=== PATIENT | female | born 1975 | race Caucasian/White ===

== ENCOUNTER 2016-12-31 17:13 | Emergency (ER) | payer MEDICAID ==
[2016-12-31 17:36] VITALS: BP 103/69
[2016-12-31] MEDS ORDERED: Sodium Chloride 0.9% 10 ML Syringe FLUSH PRN ×2 (18:27→20:36)
[2016-12-31] MEDS ORDERED: HYDROmorphone 1 MG/ML Syringe IVPUSH ONE (18:27)
[2016-12-31] MEDS ORDERED: Ondansetron 4 MG/2 ML SDV IVPUSH ONE (18:27)
[2016-12-31] MEDS ORDERED: Sodium Chloride 0.9% 1,000 ML IV ONE (18:27)
--- NOTE | 2016-12-31 18:37 | EDM.PDOC ---
ED HISTORY OF PRESENT ILLNESS - General Chief Complaint: Respiratory Problem Stated Complaint: CONGESTION Time Seen by Provider: 12/31/16 17:57 Source of Information: Reports: Patient History Limitations: Reports: No limitations - History of Present Illness INITIAL COMMENTS - FREE TEXT/NARRATIVE: Patient is a 41-year-old female who presents to the ED complaining of generalized body aches, fever/chills, nausea/vomiting, shortness of breath, cough, dizziness, headache, and right adnexal discomfort. Patient states she was initially evaluated at the walk-in clinic here at [facility] on December 27 with a diagnosis of pneumonia and placed on augmentin 875 mg twice a day. There was no chest x-ray obtained at that time. Since then the patient has noticed little improvement to her condition. States she was not tested at that point for influenza. She states she had similar symptoms approximately 2 weeks ago and was tested for influenza with negative results. States she has not improved with the above therapy and has had little intake of fluids or food. States she's been sleeping quite a bit with recent illness. In addition she has chronic right adnexal tenderness related to cyst to her right ovary. States she recently had an ultrasound obtained this past week with cyst noted to be half-dollar in size. States the discomfort to the right adnexa is unchanged with recent illness. States there is no chance of being with history of hysterectomy. Denies any pain with urination, diarrhea, constipation, abnormal vaginal discharge, or any additional complaints. Timing/Duration: Reports: Constant, Waxing/waning Severity: moderate Location, General: Reports: generalized Quality: Reports: Ache Improves with: Reports: None Worsens with: Reports: None Context, General: Reports: Sick contact Associated Symptoms (General): Reports: cough, cough w sputum, fever/chills, loss of appetite, malaise, nausea/vomiting, shortness of breath, weakness. Denies: diaphoresis, syncope Treatments BUTTON SEWER HAND: Reports: Other (see below) (augmentin) - Related Data Allergies/ADRs: Allergies Allergy/AdvReac Type Severity Reaction Status Date / Time adhesive tape Allergy Rash Verified 12/31/16 17:27 Home Meds: Home Meds Benzonatate [IJD: Benzonatate] 100 mg PO BID PRN #15 cap 12/31/16 [Rx] Ondansetron [IJD: Ondansetron ODT] 4 mg PO .EVERY 6 HOURS PRN #10 tab 12/31/16 [ Rx] Past Medical History HEENT History: Reports: Impaired vision Other HEENT History: wears glasses, dentures Other Respiratory History: SEVERE Snoring with possible Apnea Gastrointestinal History: Reports: PUD Other Gastrointestinal History: abdominal discomfort, LLQ pain, delayed gastric emptying, ulcer CARDIOVASCULAR TECH History: Reports: Other (see below) Other OB/BYN History: breast Lump and breast pain/swelling, pelvic pain Neurological History: Reports: Other (see below) Other Neuro History: neuropathy, Chronic Pain Syndrome - Past Surgical History GI Surgical History: Reports: Appendectomy, Cholecystectomy, Colonoscopy, EGD Female Surgical History: Reports: section, Hysterectomy Social & Family History - Tobacco Use Smoking Status *Q: Former Smoker Years of Tobacco use: 20 Packs/Tins Daily: 0.5 Second Hand Smoke Exposure: Yes - Caffeine Use Caffeine Use: Reports: Coffee - Alcohol Use Days Per Week of Alcohol Use: 0 - Recreational Drug Use Recreational Drug Use: No Drug Use in Last 12 Months: No - Living Situation & Occupation Living situation: Reports: , with family ED ROS GENERAL - Review of Systems Review Of Systems: See Below Constitutional: Reports: fever, chills, malaise, weakness, decreased appetite HEENT: Reports: Ear pain, Rhinitis, Other (sinus congestion). Denies: Throat pain, Throat swelling Respiratory: Reports: shortness of breath, cough, sputum (intermittent). Denies : wheezing, pleuritic chest pain GI/Abdominal: Reports: Abdominal pain (right adnexa 2nd to ovarian cysts. States this is chronic unchanged with recent illness. ), Nausea, Vomiting. Denies: Bloody stool, Constipation, Diarrhea, Distension, Flatus, Hematemesis, Melena : Denies: dysuria, flank pain, frequency, hematuria, pain, urgency, urinary retention Musculoskeletal: Reports: muscle pain (generalized) Neurological: Reports: dizziness, headache. Denies: numbness, syncope, tingling ED EXAM, GENERAL - Physical Exam Exam: See Below Exam Limited By: No limitations General Appearance: alert, WD/WN, mild distress Eye Exam: bilateral eye: EOMI, PERRL Ears: normal external exam, normal canal, hearing grossly normal, normal TMs Nose: normal inspection Throat/Mouth: Normal inspection, Normal oropharynx, Normal voice, No airway compromise Head: atraumatic, normocephalic Neck: normal inspection, supple, non-tender, full range of motion. No: lymphadenopathy (L), lymphadenopathy (R) Respiratory/Chest: no respiratory distress, lungs clear, normal breath sounds, no accessory muscle use, chest non-tender Cardiovascular: normal peripheral pulses, regular rate, rhythm, no murmur Peripheral Pulses: 2+: radial (R) GI/Abdominal: normal bowel sounds, soft, no organomegaly, no distention, tender (right adnexa) (Female) Exam: Deferred Rectal (Female) Exam: Deferred Back Exam: normal inspection, full range of motion, CVA tenderness (L) (mild). No: CVA tenderness (R) Extremities: normal inspection, normal range of motion, non-tender, no pedal edema Neurological: alert, oriented, CN II-XII intact, normal cognition, normal gait Psychiatric: normal affect, normal mood Skin Exam: Warm, Dry, Intact, Normal color, No rash Course - Vital Signs Last Recorded V/S: Last Vital Signs Temp 98.6 F 12/31/16 22:21 Pulse 78 12/31/16 22:21 Resp 16 12/31/16 22:21 BP 103/69 12/31/16 17:28 Pulse Ox 99 12/31/16 22:21 - Orders/Labs/Meds Orders: Active Orders 24 hr Category Date Time Status Peripheral IV Care [RC] . DIRECTED Care 12/31/16 18:27 Active CXR [Chest 2V] [CR] Stat Exams 12/31/16 18:28 Taken Sodium Chloride 0.9% [Saline Flush] Med 12/31/16 18:27 Active 10 ml FLUSH ASDIRECTED PRN Sodium Chloride 0.9% [Saline Flush] Med 12/31/16 20:36 Active 10 ml FLUSH ONETIME PRN Peripheral IV Insertion Adult [OM.PC] Stat Oth 12/31/16 18:27 Ordered Medication Orders Sodium Chloride (Saline Flush) 10 ml FLUSH ASDIRECTED PRN PRN Reason: Keep Vein Open Last Admin: 12/31/16 19:02 Dose: 10 ml Sodium Chloride (Saline Flush) 10 ml FLUSH ONETIME PRN PRN Reason: IV FLUSH Last Admin: 12/31/16 20:45 Dose: 10 ml Labs: Laboratory Tests 12/31/16 12/31/16 12/31/16 Range/Units 18:36 18:36 18:50 WBC 11.10 H (3.98-10.04) K/mm3 RBC 4.50 (3.98-5.22) M/mm3 Hgb 13.6 (11.2-15.7) gm/L Hct 40.9 (34.1-44.9) % MCV 90.9 (79.4-94.8) fl MCH 30.2 (25.6-32.2) pg MCHC 33.3 (32.2-35.5) g/dl RDW Std Deviation 42.5 (36.4-46.3) fL Plt Count 230 (182-369) K/mm3 MPV 9.2 L (9.4-12.3) fl Neut % (Auto) 76.1 H (34.0-71.1) % Lymph % (Auto) 15.7 L (19.3-51.7) % Bibb % (Auto) 6.3 (4.7-12.5) % Eos % (Auto) 1.4 (0.7-5.8) Baso % (Auto) 0.3 (0.1-1.2) % Neut # 8.46 H (1.56-6.13) K/mm3 Lymph # 1.74 (1.18-3.74) K/mm3 Bibb # 0.70 H (0.24-0.36) K/mm3 Eos # 0.15 (0.04-0.36) K/mm3 Baso # 0.03 (0.01-0.08) K/mm3 Sodium 140 (136-145) mEq/L Potassium 4.1 (3.5-5.1) mEq/L Chloride 107 (98-107) mEq/L Carbon Dioxide 25 (21-32) mEq/L Anion Gap 12.1 (5-15) BUN 11 (7-18) mg/dL Creatinine 0.8 (0.55-1.02) mg/dL Est Cr Clr Drug Dosing 72.45 mL/min Estimated GFR (MDRD) > 60 (>60) mL/min BUN/Creatinine Ratio 13.8 L (14-18) Glucose 103 (74-106) mg/dL Calcium 8.6 (8.5-10.1) mg/dL Total Bilirubin 0.2 (0.2-1.0) mg/dL AST 17 (15-37) U/L ALT 21 (14-59) U/L Alkaline Phosphatase 99 (46-116) U/L C-Reactive Protein 0.8 (<1.0) mg/dL Total Protein 6.5 (6.4-8.2) g/dl Albumin 3.4 (3.4-5.0) g/dl Globulin 3.1 gm/dL Albumin/Globulin Ratio 1.1 (1-2) Urine Color Yellow (Yellow) Urine Appearance Clear (Clear) Urine pH 5.5 (5.0-8.0) Ur Specific Lusk 1.025 (1.005-1.030) Urine Protein Negative (Negative) Urine Glucose (UA) Negative (Negative) Urine Ketones Negative (Negative) Urine Occult Blood Negative (Negative) Urine Nitrite Negative (Negative) Urine Bilirubin Negative (Negative) Urine Urobilinogen 0.2 (0.2-1.0) Ur Leukocyte Esterase Negative (Negative) Urine RBC Not seen (0-5) /hpf Urine WBC 0-5 (0-5) /hpf Ur Squamous Epith Cells 5-10 H (0-5) /hpf Urine Bacteria Not seen (FEW) /hpf Urine Mucus Not seen (FEW) /hpf Meds: Medications Generic Name Dose Route Start Last Admin Trade Name Gavinoq PRN Reason Stop Dose Admin Sodium Chloride 10 ml 12/31/16 18:27 12/31/16 19:02 Saline Flush FLUSH 10 ml ASDIRECTED PRN Administration Keep Vein Open Sodium Chloride 10 ml 12/31/16 20:36 12/31/16 20:45 Saline Flush FLUSH 10 ml ONETIME PRN Administration IV FLUSH Discontinued Medications Generic Name Dose Route Start Last Admin Trade Name Freq PRN Reason Stop Dose Admin Hydromorphone HCl 1 mg 12/31/16 18:27 12/31/16 18:56 Dilaudid IVPUSH 12/31/16 18:28 1 mg ONETIME ONE Administration Sodium Chloride 1,000 mls @ 999 mls/hr 12/31/16 18:27 12/31/16 19:00 Normal Saline IV 12/31/16 19:27 999 mls/hr ONETIME ONE Administration Iopamidol 150 ml 12/31/16 20:36 12/31/16 20:45 Isovue-300 (61%) IVPUSH 12/31/16 20:37 125 ml ONETIME ONE Administration Ondansetron HCl 4 mg 12/31/16 18:27 12/31/16 18:54 Zofran IVPUSH 12/31/16 18:28 4 mg ONETIME ONE Administration - Re-Assessments/Exams Free Text/Narrative Re-Assessment/Exam: Order peripheral IV with normal saline 999 mL per hour, Zofran 4 mg IVP, Dilaudid 1 mg IVP. Initial labs and studies include CBC, chem 14, CRP, UA with micro, and influenza. 12/31/16 18:34 Reviewed labs with patient that were essentially normal with no concerning findings. Reassessment, patient's pain to the right adnexa has mildly increased while in the E.D. Patient states discomfort started after undergoing surgery this past August for partial removal of the fallopian tube and scarred tissue on the right side. She has moderate to severe pain to the right adnexa with unclear etiology. She has small cyst to the right ovary measuring 50 cent coin in size. I have offered further testing to further delineate the cause of the discomfort to the right adnexa. Will go ahead and obtain CT the abdomen and pelvis with IV contrast only. Patient is still mildly nauseated. 12/31/16 21:19 CT abdomen/pelvis final interpretation: Mild increased stool throughout the colon. Nothing acute identified. Shares results of CT of the abdomen and pelvis with patient. States she feels better with the above therapies. Pain to abdomen has subsided only minimally. Etiology of current symptoms looks to be viral in nature and will run its course. Will provide prescription for zofran ODT and Tessalon Perles. Will have patient followup with PCP in the next 3 days if symptoms are not improving. Will have patient see her CARDIOVASCULAR TECH doctor this week for further evaluation of right adnexa pain. Patient had no additional questions or concerns. Departure - Departure Time of Disposition: 21:31 Disposition: Home, Self-Care 01 Condition: fair Clinical Impression: Viral upper respiratory tract infection with cough, Adnexal tenderness, right Prescriptions: Benzonatate [IJD: Benzonatate] 100 mg PO BID PRN #15 cap PRN Reason: Cough Ondansetron [IJD: Ondansetron ODT] 4 mg PO .EVERY 6 HOURS PRN #10 tab PRN Reason: Nausea Instructions: Upper Respiratory Infection, Adult, [id number] Referrals: Cherelle Gant PA-C [Primary Care Provider] - Forms: ED Department Discharge Additional Instructions: Taking Tessalon Perles and Zofran as prescribed. Continue to push the fluids. Ensure adequate rest. Advance diet as tolerated. For pain take Tylenol and ibuprofen in alternating fashion. If symptoms do not improve within the next 2- 3 days please see your primary care provider for further evaluation and treatment. Pain to adnexa area please follow up with your CARDIOVASCULAR TECH specialist this coming week for reevaluation and treatment. Return back to the ED as needed for worsening pain. - My Orders Last 24 Hours: My Active Orders 12/31/16 18:27 Peripheral IV Care [RC] . DIRECTED Sodium Chloride 0.9% [Saline Flush] 10 ml FLUSH ASDIRECTED PRN Peripheral IV Insertion Adult [OM.PC] Stat 12/31/16 18:28 CXR [Chest 2V] [CR] Stat 12/31/16 20:36 Sodium Chloride 0.9% [Saline Flush] 10 ml FLUSH ONETIME PRN - Assessment/Plan Last 24 Hours: My Active Orders 12/31/16 18:27 Peripheral IV Care [RC] . DIRECTED Sodium Chloride 0.9% [Saline Flush] 10 ml FLUSH ASDIRECTED PRN Peripheral IV Insertion Adult [OM.PC] Stat 12/31/16 18:28 CXR [Chest 2V] [CR] Stat 12/31/16 20:36 Sodium Chloride 0.9% [Saline Flush] 10 ml FLUSH ONETIME PRN
[2016-12-31] MEDS ORDERED: Iopamidol 612 MG/ML 150 ML Bottle IVPUSH ONE (20:36)
--- NOTE | 2016-12-31 21:12 | CT ---
CT abdomen and pelvis Technique: Multiple axial sections were obtained from above the dome of the diaphragm inferiorly through the pubic symphysis. Intravenous contrast was utilized. No oral contrast has been given which limits bowel evaluation. Comparison: Previous CT abdomen and pelvis exam of 09/06/16. Findings: Small portion of the visualized lung bases shows nothing acute. Liver shows a minimal low density lesion within the left lobe measuring 5 mm which is nonspecific regarding Hounsfield unit measurements most likely represents a minimal cyst. This is believed to be present on previous exam. Spleen appears within normal limits. Adrenal glands show no nodule. Pancreas appears within normal limits. Surgical clips are seen from previous cholecystectomy. Kidneys show symmetric contrast enhancement. Cyst noted within the lower left kidney measuring about 1.2 cm in size. Kidneys are otherwise unremarkable. Aorta shows no aneurysmal dilatation. No retroperitoneal adenopathy or mesenteric abnormalities are seen. No pelvic mass or adenopathy is seen. Delayed images shows contrast within the bladder. Slight increased stool within the colon is seen. No bowel dilatation is seen. No inflammatory change or free fluid is seen. 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 Impression: 1. Mild increased stool throughout colon. Other incidental findings. Nothing acute is identified. Diagnostic code #2
--- NOTE | 2017-01-01 07:15 | CR ---
Chest: Two views of the chest were obtained. Comparison: Previous chest x-ray of 12/27/16. Heart size and mediastinum are within normal limits. Minimal scoliosis is noted. Surgical clips seen from prior cholecystectomy. Lungs are clear with no acute infiltrates. Impression: 1. No acute intrathoracic process is seen. No change is seen from prior chest x-ray. Diagnostic code #2
== END 2016-12-31 22:05 | disposition home or self-care (01) ==
LOC: JD.ED 17:13
DX: J06.9 Acute upper respiratory infection, unspecified (principal); R05 Cough; R10.2 Pelvic and perineal pain; N83.201 Unspecified ovarian cyst, right side; R42 Dizziness and giddiness; R51 Headache; Z87.01 Personal history of pneumonia (recurrent); Z87.891 Personal history of nicotine dependence
CPT/HCPCS: 36415; 71020; 74177; 80053; 81001; 85025; 86140; 87804; 96361; 96374; 96375; 99283; J1170; J2405; J7040; J7050; Q9967; 99284

== ENCOUNTER 2017-05-07 11:25 | Emergency (ER) | payer MEDICAID ==
[2017-05-07] MEDS ORDERED: Aspirin 81 MG Tab.Chew PO ONE (11:55)
[2017-05-07] MEDS ORDERED: Alum Hydrox/Mag Hydrox/Simeth 30 ML, Lidocaine 2% 15 ML PO ONE ×2 (11:55)
[2017-05-07] MEDS ORDERED: Sodium Chloride 0.9% 10 ML Syringe FLUSH PRN (11:55)
--- NOTE | 2017-05-07 12:08 | EDM.PDOC ---
ED HPI GENERAL MEDICAL PROBLEM - General Chief Complaint: Chest Pain Stated Complaint: SOB, CHEST PAIN CLAMMY Time Seen by Provider: 05/07/17 11:41 Source of Information: Reports: Patient History Limitations: Reports: No Limitations - History of Present Illness INITIAL COMMENTS - FREE TEXT/NARRATIVE: Patient is a 41-year-old female presents ED with substernal chest discomfort described as a sharp/tight sensation worsened with palpation and movement. 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 Pain is worsened with sitting up. She laid back down and the pain gradually subsided. At its peak it was a 9 out of 10. With onset of discomfort she became mildly weak and has numbness and tingling to her upper and lower extremities. States she got up and went to work. 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 With painting today she became mildly short of breath and has some heart palpitations. She became diaphoretic/nauseated and felt that she was going to pass out. She sat down and symptoms significantly improved. States over the past week has not done anything abnormal as far as being outside. She took it easy. She has been under a lot more stress in her life over the past year. Her after hip replacement surgery. 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 She takes care of 3 kids that reside with her. She's also paying off her debts. In addition she has been having low back pain with no radiation for the past two wks. Pain is described as a sharp sensation with waxing and waning with intensity. Unchanged with recent onset of new symptoms. There is first-degree family relatives with heart disease. Patient has have a history of smoking and exogenous estrogen use. Past medical history: Migraines, depression, ovary disorder utilizes BCP. Current medications include: Ambien, Zoloft, and BCP. Chest Pain Score (Numeric/FACES): 4 - Related Data Allergies Allergy/AdvReac Type Severity Reaction Status Date / Time adhesive tape Allergy Rash Verified 05/07/17 11:50 Home Meds: Home Meds Sertraline HCl [Sertraline HCl] 50 mg PO DAILY 05/07/17 [History] Zolpidem Tartrate [Zolpidem Tartrate] 10 mg PO QPM PRN 05/07/17 [History] Past Medical History HEENT History: Reports: Impaired Vision Other HEENT History: wear glasses Other Respiratory History: SEVERE Snoring with possible Apnea Gastrointestinal History: Reports: PUD Other Gastrointestinal History: abdominal discomfort, LLQ pain, delayed gastric emptying, ulcer 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 (See Below) Other OB/BYN History: breast Lump and breast pain/swelling, pelvic pain Neurological History: Reports: Other (See Below) Other Neuro History: neuropathy, Chronic Pain Syndrome Psychiatric History: Reports: Anxiety, Depression - Past Surgical History GI Surgical History: Reports: Appendectomy, Cholecystectomy, Colonoscopy, EGD Female Surgical History: Reports: Section, Hysterectomy Social & Family History - Tobacco Use Smoking Status *Q: Never Smoker Years of Tobacco use: 20 Packs/Tins Daily: 0.5 Second Hand Smoke Exposure: No - Caffeine Use Caffeine Use: Reports: Coffee - Alcohol Use Days Per Week of Alcohol Use: 0 - Recreational Drug Use Recreational Drug Use: No Drug Use in Last 12 Months: No - Living Situation & Occupation Living situation: Reports: , with Family ED ROS GENERAL - Review of Systems Review Of Systems: See Below Constitutional: Denies: Fever, Chills, Malaise, Decreased Appetite HEENT: Reports: No Symptoms Respiratory: Reports: Pleuritic Chest Pain. Denies: Wheezing, Cough, Sputum, Hemoptysis Cardiovascular: Reports: Chest Pain, Palpitations. Denies: Blood Pressure Problem, Claudication, Dyspnea on Exertion, Edema, Lightheadedness, Orthopnea, PND, Syncope GI/Abdominal: Reports: Abdominal Pain (bilateral adnexa pain, chronic, no new changes), Nausea. Denies: Constipation, Diarrhea, Decreased Appetite, Vomiting : Reports: No Symptoms Musculoskeletal: Reports: Back Pain (low back) Skin: Reports: Diaphoresis Neurological: Reports: Dizziness, Numbness, Syncope (pre), Tingling, Weakness. Denies: Confusion, Headache ED EXAM, GENERAL - Physical Exam Exam: See Below Exam Limited By: No Limitations General Appearance: Alert, WD/WN, No Apparent Distress Eye Exam: Bilateral Eye: PERRL Ears: Hearing Grossly Normal Nose: Normal Inspection Throat/Mouth: Normal Voice, No Airway Compromise Head: Atraumatic, Normocephalic Neck: Normal Inspection, Supple, Non-Tender, Full Range of Motion. No: Lymphadenopathy (L), Lymphadenopathy (R) Respiratory/Chest: No Respiratory Distress, Lungs Clear, Normal Breath Sounds, No Accessory Muscle Use, Other (Tenderness to the substernal region of chest worsened with palpation. ) Cardiovascular: Normal Peripheral Pulses, Regular Rate, Rhythm, No Murmur Peripheral Pulses: 2+: Radial (L), Radial (R), Posterior Tibial (L), Posterior Tibial (R) GI/Abdominal: Normal Bowel Sounds, Soft, Non-Tender, No Organomegaly, No Distention Back Exam: Normal Inspection, Full Range of Motion. No: CVA Tenderness (L), CVA Tenderness (R) Extremities: Normal Inspection, Non-Tender, No Pedal Edema, Normal Capillary Refill Neurological: Alert, Oriented, CN II-XII Intact, Normal Cognition, No Motor/ Sensory Deficits Psychiatric: Normal Affect, Normal Mood Skin Exam: Warm, Dry, Intact, Normal Color, No Rash Course - Vital Signs Last Recorded V/S: Last Vital Signs Temp 98.4 F 05/07/17 11:33 Pulse 58 L 05/07/17 16:10 Resp 18 05/07/17 16:10 BP 102/79 05/07/17 16:10 Pulse Ox 96 05/07/17 16:10 Orthostatic Blood Pressure [ 106/82 Standing] Orthostatic Blood Pressure [ 108/90 Sitting] Orthostatic Blood Pressure [ 99/69 Supine] - Orders/Labs/Meds Orders: Active Orders 24 hr Category Date Time Status Orthostatic Vital Signs [RC] ASDIRECTED Care 05/07/17 11:55 Active Peripheral IV Care [RC] . DIRECTED Care 05/07/17 11:55 Active Peripheral IV Insertion Adult [OM.PC] Stat Oth 05/07/17 11:54 Ordered Labs: Laboratory Tests 05/07/17 05/07/17 05/07/17 Range/Units 11:45 11:45 11:45 WBC 5.62 (3.98-10.04) K/mm3 RBC 4.56 (3.98-5.22) M/mm3 Hgb 13.9 (11.2-15.7) gm/L Hct 41.2 (34.1-44.9) % MCV 90.4 (79.4-94.8) fl MCH 30.5 (25.6-32.2) pg MCHC 33.7 (32.2-35.5) g/dl RDW Std Deviation 40.2 (36.4-46.3) fL Plt Count 236 (182-369) K/mm3 MPV 9.6 (9.4-12.3) fl Neut % (Auto) 71.6 H (34.0-71.1) % Lymph % (Auto) 20.6 (19.3-51.7) % [place] % (Auto) 5.7 (4.7-12.5) % Eos % (Auto) 1.2 (0.7-5.8) Baso % (Auto) 0.7 (0.1-1.2) % Neut # (Auto) 4.02 (1.56-6.13) K/mm3 Lymph # (Auto) 1.16 L (1.18-3.74) K/mm3 [place] # (Auto) 0.32 (0.24-0.36) K/mm3 Eos # (Auto) 0.07 (0.04-0.36) K/mm3 Baso # (Auto) 0.04 (0.01-0.08) K/mm3 PT 10.1 (8.0-13.0) SECONDS INR 0.93 APTT (22-36) SECONDS D-Dimer, Quantitative (0.19-0.59) mg/L Sodium 139 (136-145) mEq/L Potassium 4.1 (3.5-5.1) mEq/L Chloride 107 (98-107) mEq/L Carbon Dioxide 24 (21-32) mEq/L Anion Gap 12.1 (5-15) BUN 12 (7-18) mg/dL Creatinine 1.0 (0.55-1.02) mg/dL Est Cr Clr Drug Dosing 65.95 mL/min Estimated GFR (MDRD) > 60 (>60) mL/min BUN/Creatinine Ratio 12.0 L (14-18) Glucose 98 (74-106) mg/dL Calcium 9.0 (8.5-10.1) mg/dL Total Bilirubin 0.4 (0.2-1.0) mg/dL AST 21 (15-37) U/L ALT 18 (14-59) U/L Alkaline Phosphatase 89 (46-116) U/L Troponin I < 0.017 (0.00-0.056) ng/mL C-Reactive Protein < 0.2 (<1.0) mg/dL Total Protein 7.0 (6.4-8.2) g/dl Albumin 3.8 (3.4-5.0) g/dl Globulin 3.2 gm/dL Albumin/Globulin Ratio 1.2 (1-2) Lipase 183 (73-393) U/L TSH 3rd Generation 1.101 (0.358-3.74) uIU/mL Urine Color (Yellow) Urine Appearance (Clear) Urine pH (5.0-8.0) Ur Specific [place] (1.005-1.030) Urine Protein (Negative) Urine Glucose (UA) (Negative) Urine Ketones (Negative) Urine Occult Blood (Negative) Urine Nitrite (Negative) Urine Bilirubin (Negative) Urine Urobilinogen (0.2-1.0) Ur Leukocyte Esterase (Negative) Urine RBC (0-5) /hpf Urine WBC (0-5) /hpf Ur Epithelial Cells (0-5) /hpf Urine Bacteria (FEW) /hpf Urine Mucus (FEW) /hpf 05/07/17 05/07/17 05/07/17 Range/Units 11:45 11:45 12:23 WBC (3.98-10.04) K/mm3 RBC (3.98-5.22) M/mm3 Hgb (11.2-15.7) gm/L Hct (34.1-44.9) % MCV (79.4-94.8) fl MCH (25.6-32.2) pg MCHC (32.2-35.5) g/dl RDW Std Deviation (36.4-46.3) fL Plt Count (182-369) K/mm3 MPV (9.4-12.3) fl Neut % (Auto) (34.0-71.1) % Lymph % (Auto) (19.3-51.7) % [place] % (Auto) (4.7-12.5) % Eos % (Auto) (0.7-5.8) Baso % (Auto) (0.1-1.2) % Neut # (Auto) (1.56-6.13) K/mm3 Lymph # (Auto) (1.18-3.74) K/mm3 [place] # (Auto) (0.24-0.36) K/mm3 Eos # (Auto) (0.04-0.36) K/mm3 Baso # (Auto) (0.01-0.08) K/mm3 PT (8.0-13.0) SECONDS INR APTT 27 (22-36) SECONDS D-Dimer, Quantitative < 0.19 L (0.19-0.59) mg/L Sodium (136-145) mEq/L Potassium (3.5-5.1) mEq/L Chloride (98-107) mEq/L Carbon Dioxide (21-32) mEq/L Anion Gap (5-15) BUN (7-18) mg/dL Creatinine (0.55-1.02) mg/dL Est Cr Clr Drug Dosing mL/min Estimated GFR (MDRD) (>60) mL/min BUN/Creatinine Ratio (14-18) Glucose (74-106) mg/dL Calcium (8.5-10.1) mg/dL Total Bilirubin (0.2-1.0) mg/dL AST (15-37) U/L ALT (14-59) U/L Alkaline Phosphatase (46-116) U/L Troponin I (0.00-0.056) ng/mL C-Reactive Protein (<1.0) mg/dL Total Protein (6.4-8.2) g/dl Albumin (3.4-5.0) g/dl Globulin gm/dL Albumin/Globulin Ratio (1-2) Lipase (73-393) U/L TSH 3rd Generation (0.358-3.74) uIU/mL Urine Color Yellow (Yellow) Urine Appearance Clear (Clear) Urine pH 6.5 (5.0-8.0) Ur Specific [place] 1.025 (1.005-1.030) Urine Protein Negative (Negative) Urine Glucose (UA) Negative (Negative) Urine Ketones Negative (Negative) Urine Occult Blood Negative (Negative) Urine Nitrite Negative (Negative) Urine Bilirubin Negative (Negative) Urine Urobilinogen 0.2 (0.2-1.0) Ur Leukocyte Esterase Negative (Negative) Urine RBC Not seen (0-5) /hpf Urine WBC Not seen (0-5) /hpf Ur Epithelial Cells 10-20 H (0-5) /hpf Urine Bacteria Not seen (FEW) /hpf Urine Mucus Few (FEW) /hpf 05/07/17 Range/Units 14:06 WBC (3.98-10.04) K/mm3 RBC (3.98-5.22) M/mm3 Hgb (11.2-15.7) gm/L Hct (34.1-44.9) % MCV (79.4-94.8) fl MCH (25.6-32.2) pg MCHC (32.2-35.5) g/dl RDW Std Deviation (36.4-46.3) fL Plt Count (182-369) K/mm3 MPV (9.4-12.3) fl Neut % (Auto) (34.0-71.1) % Lymph % (Auto) (19.3-51.7) % [place] % (Auto) (4.7-12.5) % Eos % (Auto) (0.7-5.8) Baso % (Auto) (0.1-1.2) % Neut # (Auto) (1.56-6.13) K/mm3 Lymph # (Auto) (1.18-3.74) K/mm3 [place] # (Auto) (0.24-0.36) K/mm3 Eos # (Auto) (0.04-0.36) K/mm3 Baso # (Auto) (0.01-0.08) K/mm3 PT (8.0-13.0) SECONDS INR APTT (22-36) SECONDS D-Dimer, Quantitative (0.19-0.59) mg/L Sodium (136-145) mEq/L Potassium (3.5-5.1) mEq/L Chloride (98-107) mEq/L Carbon Dioxide (21-32) mEq/L Anion Gap (5-15) BUN (7-18) mg/dL Creatinine (0.55-1.02) mg/dL Est Cr Clr Drug Dosing mL/min Estimated GFR (MDRD) (>60) mL/min BUN/Creatinine Ratio (14-18) Glucose (74-106) mg/dL Calcium (8.5-10.1) mg/dL Total Bilirubin (0.2-1.0) mg/dL AST (15-37) U/L ALT (14-59) U/L Alkaline Phosphatase (46-116) U/L Troponin I < 0.017 (0.00-0.056) ng/mL C-Reactive Protein (<1.0) mg/dL Total Protein (6.4-8.2) g/dl Albumin (3.4-5.0) g/dl Globulin gm/dL Albumin/Globulin Ratio (1-2) Lipase (73-393) U/L TSH 3rd Generation (0.358-3.74) uIU/mL Urine Color (Yellow) Urine Appearance (Clear) Urine pH (5.0-8.0) Ur Specific [place] (1.005-1.030) Urine Protein (Negative) Urine Glucose (UA) (Negative) Urine Ketones (Negative) Urine Occult Blood (Negative) Urine Nitrite (Negative) Urine Bilirubin (Negative) Urine Urobilinogen (0.2-1.0) Ur Leukocyte Esterase (Negative) Urine RBC (0-5) /hpf Urine WBC (0-5) /hpf Ur Epithelial Cells (0-5) /hpf Urine Bacteria (FEW) /hpf Urine Mucus (FEW) /hpf Meds: Medications Discontinued Medications Generic Name Dose Route Start Last Admin Trade Name Gavinoq PRN Reason Stop Dose Admin Aspirin 324 mg 05/07/17 11:55 05/07/17 11:59 Aspirin PO 05/07/17 11:56 324 mg ONETIME ONE Administration Al Hydroxide/Mg Hydroxide 30 0 ml 05/07/17 11:55 05/07/17 12:01 ml/ Lidocaine HCl 15 ml PO 05/07/17 11:56 45 ml ONETIME ONE Administration Hydromorphone HCl 0.25 mg 05/07/17 14:55 05/07/17 15:00 Dilaudid IVPUSH 05/07/17 14:56 0.25 mg ONETIME ONE Administration Sodium Chloride 1,000 mls @ 999 mls/hr 05/07/17 13:20 05/07/17 13:42 Normal Saline IV 05/07/17 14:20 999 mls/hr ONETIME ONE Administration Ketorolac Tromethamine 30 mg 05/07/17 13:47 05/07/17 14:15 Toradol IVPUSH 05/07/17 13:48 30 mg ONETIME ONE Administration Sodium Chloride 10 ml 05/07/17 11:55 05/07/17 13:44 Saline Flush FLUSH 10 ml ASDIRECTED PRN Administration Keep Vein Open - Re-Assessments/Exams Free Text/Narrative Re-Assessment/Exam: Order peripheral IV. Aspirin 324 mg by mouth and GI cocktail by mouth. Initial labs and studies include CBC, chem 14, CRP, lipase, PTT/INR, PTT, troponin, TSH , and UA. Chest x-ray will be obtained as well. Will also obtain orthostatic vitals. Wells criteria: Patient is determined to be low risk (<2 points:1.3% incidence PE): consider d-dimer testing to rule out Pulmonary embolism. Ordered D-Dimer. EKG showed a sinus rhythm at a rate of [address] changes noted. 05/07/17 12:54 chest x-ray revealed no acute abnormalities. Final interpretation is pending. 05/07/17 13:06 CBC and chemistry panel were essentially normal. Troponin less than 0.017. CRP less than 0.2. Lipase normal. TSH normal. UA did not reveal any concerning findings. Coags were negative. D-dimer was negative. 05/07/17 13:07 Negative orthostatic vital signs. 05/07/17 13:08 Ordered 2nd troponin two hours from previous blood draw. 05/07/17 13:19 Reexamination, patient lying comfortably in bed. Patient did become mildly dizzy with standing for orthostatic vitals. Current BP 97/54 with HR 62. Will order 1 liter of NS IV. Patient complained of a headache. 05/07/17 13:48 Ordered Toradol 30 mg IV.. 05/07/17 14:47 2nd troponin was negative. 05/07/17 14:56 Reassessment, patient still complains of pain to the chest, upper /low back. Pain is reproducible with palpation. Ordered dilaudid 0.25mg IVP. 05/07/17 15:54 Patient is ready be discharged home. Pain has subsided with the above therapies. Will discharge patient home with instructions as documented. Departure - Departure Time of Disposition: 15:55 Disposition: Home, Self-Care 01 Condition: Good Clinical Impression: Atypical chest pain Low back pain Qualifiers: Chronicity: acute Back pain laterality: bilateral Sciatica presence: without sciatica Qualified Code(s): M54.5 - Low back pain Instructions: Back Pain, Adult, Nonspecific Chest Pain, [id number] Referrals: Cherelle Gant PA-C [Primary Care Provider] - Forms: ED Department Discharge Additional Instructions: EKG, chest x-ray, labs were all essentially normal. Examination didn't elicit increasing pain with palpation of your chest and low back. Findings consistent for etiology most likely associated with musculoskeletal. Follow-up with your primary care provider in the next week for reevaluation. Can utilize Tylenol and ibuprofen in alternating fashion for pain. Refrain from any activities that cause worsening symptoms. Push the fluids. Ensure adequate rest. Return to ED for any new or worsening symptoms. Quit smoking. - My Orders Last 24 Hours: My Active Orders 05/07/17 11:54 Peripheral IV Insertion Adult [OM.PC] Stat 05/07/17 11:55 Orthostatic Vital Signs [RC] ASDIRECTED Peripheral IV Care [RC] . DIRECTED - Assessment/Plan Last 24 Hours: My Active Orders 05/07/17 11:54 Peripheral IV Insertion Adult [OM.PC] Stat 05/07/17 11:55 Orthostatic Vital Signs [RC] ASDIRECTED Peripheral IV Care [RC] . DIRECTED
--- NOTE | 2017-05-07 12:55 | CR ---
Chest: Portable view of the chest was obtained. Comparison: Previous chest x-ray of 12/31/16. Heart size and mediastinum are normal. Lungs are clear. Bony structures are grossly intact. Evidence of prior cholecystectomy. Impression: 1. Nothing acute is seen on portable chest x-ray. Diagnostic code #2
[2017-05-07] MEDS ORDERED: Sodium Chloride 0.9% 1,000 ML IV ONE (13:20)
[2017-05-07] MEDS ORDERED: Ketorolac 30 MG/ML SDV IVPUSH ONE (13:47)
[2017-05-07] MEDS ORDERED: HYDROmorphone 0.5 MG/0.5 ML Syringe IVPUSH ONE (14:55)
[2017-05-07 16:16] VITALS: BP 102/79
== END 2017-05-07 16:10 | disposition home or self-care (01) ==
LOC: JD.ED 11:25
DX: R07.89 Other chest pain (principal); M54.5 Low back pain; F32.9 Major depressive disorder, single episode, unspecified; G43.909 Migraine, unspecified, not intractable, without status migrainosus; Z90.710 Acquired absence of both cervix and uterus; Z90.49 Acquired absence of other specified parts of digestive tract; Z79.899 Other long term (current) drug therapy
CPT/HCPCS: 36415; 71010; 80053; 81001; 83690; 84443; 84484; 85025; 85379; 85610; 85730; 86140; 96361; 96374; 96375; 99285; A9270; J1170; J1885; J7040; J7050; 99284

== ENCOUNTER 2017-12-12 13:00 | Emergency (ER) | payer MEDICAID ==
[2017-12-12 13:13] VITALS: BP 117/88
[2017-12-12] MEDS: Sodium Chloride 0.9% 10 ML Syringe FLUSH PRN (13:31)
[2017-12-12] MEDS: Sodium Chloride 0.9% 500 ML IV ONE (13:31)
[2017-12-12] MEDS: Acetaminophen 325 MG Tab PO ONE (15:43)
[2017-12-12] MEDS: Ketorolac 30 MG/ML SDV IVPUSH SCH (15:43)
--- NOTE | 2017-12-12 16:28 | EDM.PDOC ---
ED HPI GENERAL MEDICAL PROBLEM - General Chief Complaint: Chest Pain Stated Complaint: SYNCOPE/LETHARGY/CHEST PAIN Time Seen by Provider: 12/12/17 13:11 Source of Information: Reports: Patient, RN Notes Reviewed - History of Present Illness INITIAL COMMENTS - FREE TEXT/NARRATIVE: 42-year-old female comes in with near syncopal event. She became acutely weak, lightheaded, dizzy and "almost passed out". She also did have some mild left anterior chest discomfort which was gone at time of my initial history and exam. She has no known history for heart disease. She did either pass out or suffered near-syncope also about 3 days ago. No abdominal pain nausea or vomiting. No recent diarrhea fever chills. She is not coughing any more than usual. She denies sore throat. She's had no radiation of discomfort to the shoulder or arm neck or back. She has had palpitations with her episodes of dizziness and syncope. Left Chest Pain Score (Numeric/FACES): 7 - Related Data Allergies Allergy/AdvReac Type Severity Reaction Status Date / Time adhesive tape Allergy Rash Verified 12/12/17 13:13 Home Meds: Home Meds Desog-E.Estradiol/E.Estradiol [Kariva 28 Day] 1 each PO DAILY 12/12/17 [History] Zolpidem Tartrate [Ambien] 10 mg PO BEDTIME PRN 12/12/17 [History] Past Medical History HEENT History: Reports: Impaired Vision Other HEENT History: wear glasses Respiratory History: Reports: Other (See Below) Other Respiratory History: SEVERE Snoring with possible Apnea Gastrointestinal History: Reports: PUD Other Gastrointestinal History: abdominal discomfort, LLQ pain, delayed gastric emptying, ulcer 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: Other (See Below) Other OB/BYN History: breast Lump and breast pain/swelling, pelvic pain Neurological History: Reports: Other (See Below) Other Neuro History: neuropathy, Chronic Pain Syndrome Psychiatric History: Reports: Anxiety, Depression - Past Surgical History GI Surgical History: Reports: Appendectomy, Cholecystectomy, Colonoscopy, EGD Female Surgical History: Reports: Section, Hysterectomy Musculoskeletal Surgical History: Reports: Other (See Below) Other Musculoskeletal Surgeries/Procedures:: wrist fracture Social & Family History - Tobacco Use Smoking Status *Q: Current Every Day Smoker Years of Tobacco use: 8 Packs/Tins Daily: 0.3 Used Tobacco, but Quit: No Second Hand Smoke Exposure: No - Caffeine Use Caffeine Use: Reports: Coffee - Alcohol Use Days Per Week of Alcohol Use: 0 - Recreational Drug Use Recreational Drug Use: No Drug Use in Last 12 Months: No - Living Situation & Occupation Living situation: Reports: , with Family ED ROS GENERAL - Review of Systems Review Of Systems: See Below Constitutional: Denies: Fever, Chills HEENT: Denies: Sinus Problem, Throat Pain Respiratory: Reports: Pleuritic Chest Pain (She does have very mild left chest discomfort with deep breathing). Denies: Shortness of Breath, Wheezing Cardiovascular: Reports: Chest Pain GI/Abdominal: Denies: Abdominal Pain (Mild, gone), Diarrhea, Nausea, Vomiting Musculoskeletal: Denies: Neck Pain, Shoulder Pain, Arm Pain Skin: Reports: No Symptoms Neurological: Denies: Headache, Numbness, Tingling, Trouble Speaking, Difficulty Walking ED EXAM, GENERAL - Physical Exam Exam: See Below General Appearance: Alert, No Apparent Distress Eye Exam: Bilateral Eye: PERRL Throat/Mouth: Normal Inspection, Normal Oropharynx Neck: Supple, Full Range of Motion Respiratory/Chest: No Respiratory Distress, Lungs Clear, Normal Breath Sounds, Other (Mild tenderness left sternal border) Cardiovascular: Regular Rate, Rhythm, Other (Mild tenderness left anterior chest , left sternal border) GI/Abdominal: Soft, Non-Tender. No: Guarding, Rebound Back Exam: No: CVA Tenderness (L), CVA Tenderness (R) Extremities: Normal Capillary Refill. No: Pedal Edema, Leg Pain Neurological: Alert, Oriented, No Motor/Sensory Deficits Skin Exam: Warm, Dry, Normal Color EKG INTERPRETATION EKG Date: 12/12/17 Rhythm: NSR Muse: Normal P-Wave: Present QRS: Normal ST-T: Normal QT: Normal Course - Vital Signs Last Recorded V/S: Last Vital Signs Temp 97.4 F 12/12/17 13:11 Pulse 75 12/12/17 13:11 Resp 18 12/12/17 13:11 BP 117/88 12/12/17 13:11 Pulse Ox 100 12/12/17 13:11 - Orders/Labs/Meds Orders: Active Orders 24 hr Category Date Time Status EKG 12 Lead [EKG Documentation Completion] [RC] STAT Care 02/21/18 13:18 Active Event Monitor [RC] .PRN Care 12/12/17 17:45 Active Peripheral IV Care [RC] . DIRECTED Care 12/12/17 13:18 Active Peripheral IV Insertion Adult [OM.PC] Stat Oth 12/12/17 13:18 Ordered Labs: Laboratory Tests 12/12/17 12/12/17 12/12/17 Range/Units 13:15 13:15 13:15 WBC 12.57 H (3.98-10.04) K/mm3 RBC 4.92 (3.98-5.22) M/mm3 Hgb 15.3 (11.2-15.7) gm/L Hct 45.3 H (34.1-44.9) % MCV 92.1 (79.4-94.8) fl MCH 31.1 (25.6-32.2) pg MCHC 33.8 (32.2-35.5) g/dl RDW Std Deviation 44.2 (36.4-46.3) fL Plt Count 251 (182-369) K/mm3 MPV 9.2 L (9.4-12.3) fl Neut % (Auto) 84.9 H (34.0-71.1) % Lymph % (Auto) 9.6 L (19.3-51.7) % [place] % (Auto) 4.5 L (4.7-12.5) % Eos % (Auto) 0.8 (0.7-5.8) Baso % (Auto) 0.2 (0.1-1.2) % Neut # (Auto) 10.67 H (1.56-6.13) K/mm3 Lymph # (Auto) 1.21 (1.18-3.74) K/mm3 [place] # (Auto) 0.57 H (0.24-0.36) K/mm3 Eos # (Auto) 0.10 (0.04-0.36) K/mm3 Baso # (Auto) 0.02 (0.01-0.08) K/mm3 Manual Slide Review Abnormal smear D-Dimer, Quantitative < 0.19 L (0.19-0.59) mg/L Sodium 141 (136-145) mEq/L Potassium 3.5 (3.5-5.1) mEq/L Chloride 104 (98-107) mEq/L Carbon Dioxide 25 (21-32) mEq/L Anion Gap 15.5 H (5-15) BUN 18 (7-18) mg/dL Creatinine 0.9 (0.55-1.02) mg/dL Est Cr Clr Drug Dosing 78.38 mL/min Estimated GFR (MDRD) > 60 (>60) mL/min BUN/Creatinine Ratio 20.0 H (14-18) Glucose 97 (74-106) mg/dL Calcium 9.1 (8.5-10.1) mg/dL Total Bilirubin 0.3 (0.2-1.0) mg/dL AST 18 (15-37) U/L ALT 21 (14-59) U/L Alkaline Phosphatase 93 (46-116) U/L Troponin I (0.00-0.056) ng/mL Total Protein 7.2 (6.4-8.2) g/dl Albumin 3.8 (3.4-5.0) g/dl Globulin 3.4 gm/dL Albumin/Globulin Ratio 1.1 (1-2) 12/12/17 Range/Units 13:26 WBC (3.98-10.04) K/mm3 RBC (3.98-5.22) M/mm3 Hgb (11.2-15.7) gm/L Hct (34.1-44.9) % MCV (79.4-94.8) fl MCH (25.6-32.2) pg MCHC (32.2-35.5) g/dl RDW Std Deviation (36.4-46.3) fL Plt Count (182-369) K/mm3 MPV (9.4-12.3) fl Neut % (Auto) (34.0-71.1) % Lymph % (Auto) (19.3-51.7) % [place] % (Auto) (4.7-12.5) % Eos % (Auto) (0.7-5.8) Baso % (Auto) (0.1-1.2) % Neut # (Auto) (1.56-6.13) K/mm3 Lymph # (Auto) (1.18-3.74) K/mm3 [place] # (Auto) (0.24-0.36) K/mm3 Eos # (Auto) (0.04-0.36) K/mm3 Baso # (Auto) (0.01-0.08) K/mm3 Manual Slide Review D-Dimer, Quantitative (0.19-0.59) mg/L Sodium (136-145) mEq/L Potassium (3.5-5.1) mEq/L Chloride (98-107) mEq/L Carbon Dioxide (21-32) mEq/L Anion Gap (5-15) BUN (7-18) mg/dL Creatinine (0.55-1.02) mg/dL Est Cr Clr Drug Dosing mL/min Estimated GFR (MDRD) (>60) mL/min BUN/Creatinine Ratio (14-18) Glucose (74-106) mg/dL Calcium (8.5-10.1) mg/dL Total Bilirubin (0.2-1.0) mg/dL AST (15-37) U/L ALT (14-59) U/L Alkaline Phosphatase (46-116) U/L Troponin I < 0.017 (0.00-0.056) ng/mL Total Protein (6.4-8.2) g/dl Albumin (3.4-5.0) g/dl Globulin gm/dL Albumin/Globulin Ratio (1-2) Meds: Medications Discontinued Medications Generic Name Dose Route Start Last Admin Trade Name Freq PRN Reason Stop Dose Admin Acetaminophen 975 mg 12/12/17 15:38 12/12/17 15:43 Tylenol PO 12/12/17 15:39 975 mg NOW ONE Administration Sodium Chloride 500 mls @ 999 mls/hr 12/12/17 13:18 12/12/17 13:31 Normal Saline IV 12/12/17 13:48 999 mls/hr .BOLUS ONE Administration Ketorolac Tromethamine 30 mg 12/12/17 15:45 12/12/17 15:43 Toradol IVPUSH 30 mg ONETIME LILLIAN Administration Sodium Chloride 10 ml 12/12/17 13:18 12/12/17 13:31 Saline Flush FLUSH 10 ml ASDIRECTED PRN Administration Keep Vein Open Tramadol HCl 50 mg 12/12/17 18:07 12/12/17 18:10 Ultram PO 12/12/17 18:08 50 mg ONETIME ONE Administration - Re-Assessments/Exams Free Text/Narrative Re-Assessment/Exam: 12/12/17 16:33 Patient started having more chest pain a short time ago. We did repeat her EKG. That was normal. I have ordered a a troponin. That has come back normal. Then prior to discharge she developed a more sharp shooting pain left chest. Sats of continued to run good, 98-100%. He is worse with deep breathing. 4 I am going to check a d-dimer. that is pending at this time. 12/12/17 17:51. D-dimer has come back negative. Will send her home with an event monitor. Departure - Departure Time of Disposition: 17:46 Disposition: Home, Self-Care 01 Condition: Fair Clinical Impression: Atypical chest pain, Palpitations Syncope Qualifiers: Syncope type: unspecified Qualified Code(s): R55 - Syncope and collapse Instructions: Nonspecific Chest Pain, [id number], Palpitations, [id number] Referrals: Mignon Alcantara PA-C [Primary Care Provider] - Forms: ED Department Discharge Additional Instructions: Continue to drink plenty of water to maintain hydration, event recorder for the next week. Follow-up with your regular medical provider several days after the event recorder has been removed. If you do get weak, dizzy or lightheaded again , starting to feel like you may pass out make sure that you get sure you get your head to a lowered position, preferably lying down and then you will not pass out. You may alternate Tylenol and ibuprofen if needed for any further chest or other discomfort, return to ED as needed if symptoms worsening in any way. - My Orders Last 24 Hours: My Active Orders 12/12/17 13:18 EKG 12 Lead [EKG Documentation Completion] [] STAT Peripheral IV Care [RC] . DIRECTED Peripheral IV Insertion Adult [OM.PC] Stat 12/12/17 17:45 Event Monitor [RC] .PRN - Assessment/Plan Last 24 Hours: My Active Orders 12/12/17 13:18 EKG 12 Lead [EKG Documentation Completion] [] STAT Peripheral IV Care [RC] . DIRECTED Peripheral IV Insertion Adult [OM.PC] Stat 12/12/17 17:45 Event Monitor [RC] .PRN
[2017-12-12] MEDS: traMADol 50 MG Tab PO ONE (18:10)
== END 2017-12-12 18:20 | disposition home or self-care (01) ==
LOC: JD.ED 13:00
DX: R55 Syncope and collapse (principal); R07.89 Other chest pain; R00.2 Palpitations; F17.210 Nicotine dependence, cigarettes, uncomplicated; Z79.899 Other long term (current) drug therapy
CPT/HCPCS: 36415; 80053; 84484; 85025; 85379; 93005; 93270; 93271; 96361; 96374; 99285; A9270; J1885; J7040; J7050

== ENCOUNTER 2018-11-16 11:52 | Emergency (ER) | payer BC, MEDICAID ==
--- NOTE | 2018-11-16 13:30 | EDM.PDOC ---
ED HPI GENERAL MEDICAL PROBLEM - General Chief Complaint: Headache Stated Complaint: MIGRAINE Time Seen by Provider: 11/16/18 12:58 Source of Information: Reports: Patient, RN Notes Reviewed History Limitations: Reports: No Limitations - History of Present Illness INITIAL COMMENTS - FREE TEXT/NARRATIVE: Patient is a 43 year old female who presents to the ED for the evaluation of a headache after a lumbar puncture on . The patient states that she had a Myelogram done at [place] on for some ongoing lower leg issues. She states that she had a minor headache when she left [place] and when she got home , she went to bed and laid flat. Any time she tries to sit up straight, she immediately gets an intense headache and has to lay right back down. She states that she has been laying flat almost all day yesterday and all of today. She has tried to take chewable tylenol and drink some coffee/coca-cola and this has not provided much relief. She also states that she hasn't been able to eat or drink much of anything because she has had to lay flat. She does note a previous history of migraine headaches. She states that her headache today is at the base of her skull with radiation to the front and feels like a vise. She attempted to call [facility] for advice and they told her to lay flat and told her that she may need a blood patch to help with her headache. Neck Pain Score (Numeric/FACES): 10 - Related Data Allergies Allergy/AdvReac Type Severity Reaction Status Date / Time adhesive tape Allergy Rash Verified 11/16/18 14:06 Home Meds: Home Meds Desog-E.Estradiol/E.Estradiol [Kariva 28 Day] 1 each PO DAILY 12/12/17 [History] Zolpidem Tartrate [Ambien] 10 mg PO BEDTIME PRN 12/12/17 [History] Acetaminophen/HYDROcodone [[place] 325-5 MG] 1 tab PO Q6H PRN #16 tablet 11/16/18 [Rx] Ondansetron [Zofran ODT] 4 mg PO Q6H PRN #20 tab.dis 11/16/18 [Rx] Past Medical History HEENT History: Reports: Impaired Vision Other HEENT History: wear glasses Respiratory History: Reports: Other (See Below) Other Respiratory History: SEVERE Snoring with possible Apnea Gastrointestinal History: Reports: PUD Other Gastrointestinal History: abdominal discomfort, LLQ pain, delayed gastric emptying, ulcer 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 (See Below) 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 History: breast Lump and breast pain/swelling, pelvic pain Neurological History: Reports: Other (See Below) Other Neuro History: neuropathy, Chronic Pain Syndrome Psychiatric History: Reports: Anxiety, Depression - Past Surgical History GI Surgical History: Reports: Appendectomy, Cholecystectomy, Colonoscopy, EGD Female Surgical History: Reports: Section, Hysterectomy Musculoskeletal Surgical History: Reports: Other (See Below) Other Musculoskeletal Surgeries/Procedures:: wrist fracture Social & Family History - Tobacco Use Smoking Status *Q: Former Smoker Used Tobacco, but Quit: Yes Month/Year Tobacco Last Used: 1 yr - Caffeine Use Caffeine Use: Reports: Coffee - Recreational Drug Use Recreational Drug Use: No - Living Situation & Occupation Living situation: Reports: , with Family ED ROS GENERAL - Review of Systems Review Of Systems: See Below Constitutional: Denies: Fever, Chills HEENT: Reports: No Symptoms Respiratory: Reports: No Symptoms Cardiovascular: Reports: No Symptoms Endocrine: Reports: No Symptoms GI/Abdominal: Reports: No Symptoms : Reports: No Symptoms Musculoskeletal: Reports: No Symptoms Skin: Reports: No Symptoms Neurological: Reports: Headache Psychiatric: Reports: No Symptoms Hematologic/Lymphatic: Reports: No Symptoms Immunologic: Reports: No Symptoms - Physical Exam Exam: See Below Exam Limited By: No Limitations General Appearance: Alert, WD/WN, Mild Distress (pt is in darkened room, laying flat) Ears: Normal External Exam Nose: Normal Inspection Throat/Mouth: Normal Inspection, Normal Oropharynx Head Exam: Atraumatic, Normocephalic Neck: Normal Inspection, Supple, Non-Tender, Full Range of Motion Respiratory/Chest: No Respiratory Distress, Lungs Clear, Normal Breath Sounds, No Accessory Muscle Use, Chest Non-Tender Cardiovascular: Normal Peripheral Pulses, Regular Rate, Rhythm, No Murmur Neuro Exam (Abbreviated): Alert, Oriented, Normal Cognition, No Motor/Sensory Deficits Back Exam: Normal Inspection Extremities: Normal Inspection, Normal Capillary Refill Psychiatric: Normal Affect, Normal Mood Skin Exam: Warm, Dry, Intact, Normal Color, No Rash Course - Vital Signs Last Recorded V/S: Last Vital Signs Temp 99.1 F 11/16/18 20:20 Pulse 70 11/16/18 20:20 Resp 16 11/16/18 20:20 BP 110/76 11/16/18 20:20 Pulse Ox 99 11/16/18 20:20 - Orders/Labs/Meds Orders: Active Orders 24 hr Category Date Time Status Peripheral IV Care [RC] . DIRECTED Care 11/16/18 13:31 Active Acetaminophen/HYDROcodone [[place] 325-5 MG] Med 11/16/18 21:08 Once 1 tab PO ONETIME ONE Ondansetron [Zofran] Med 11/16/18 21:07 Once 4 mg IVPUSH ONETIME ONE Sodium Chloride 0.9% [Normal Saline] 1,000 ml Med 11/16/18 13:45 Active IV ASDIRECTED Sodium Chloride 0.9% [Saline Flush] Med 11/16/18 13:31 Active 10 ml FLUSH ASDIRECTED PRN Peripheral IV Insertion Adult [OM.PC] Routine Oth 11/16/18 13:31 Ordered Medication Orders Hydrocodone Bitart/Acetaminophen ([place] 325-5 Mg) 1 tab PO ONETIME ONE Stop: 11/16/18 21:09 Sodium Chloride (Normal Saline) 1,000 mls @ 500 mls/hr IV ASDIRECTED LILLIAN Last Admin: 11/16/18 14:02 Dose: 500 mls/hr Sodium Chloride (Saline Flush) 10 ml FLUSH ASDIRECTED PRN PRN Reason: Keep Vein Open Last Admin: 11/16/18 14:02 Dose: 10 ml Labs: Laboratory Tests 11/16/18 11/16/18 Range/Units 13:45 13:45 WBC 9.20 (3.98-10.04) K/mm3 RBC 5.26 H (3.98-5.22) M/mm3 Hgb 15.3 (11.2-15.7) gm/L Hct 46.5 H (34.1-44.9) % MCV 88.4 (79.4-94.8) fl MCH 29.1 (25.6-32.2) pg MCHC 32.9 (32.2-35.5) g/dl RDW Std Deviation 40.3 (36.4-46.3) fL Plt Count 267 (182-369) K/mm3 MPV 9.5 (9.4-12.3) fl Neutrophils % (Manual) 92 H (40-60) % Band Neutrophils % 0 (0-10) % Lymphocytes % (Manual) 5 L (20-40) % Atypical Lymphs % 0 % Monocytes % (Manual) 3 (2-10) % Eosinophils % (Manual) 0 L (0.7-5.8) % Basophils % (Manual) 0 L (0.1-1.2) Platelet Estimate Adequate RBC Morph Comment Normal Sodium 141 (136-145) mEq/L Potassium 3.9 (3.5-5.1) mEq/L Chloride 105 (98-107) mEq/L Carbon Dioxide 21 (21-32) mEq/L Anion Gap 18.9 H (5-15) BUN 12 (7-18) mg/dL Creatinine 0.9 (0.55-1.02) mg/dL Est Cr Clr Drug Dosing 63.09 mL/min Estimated GFR (MDRD) > 60 (>60) mL/min BUN/Creatinine Ratio 13.3 L (14-18) Glucose 103 (74-106) mg/dL Calcium 9.2 (8.5-10.1) mg/dL Total Bilirubin 0.6 (0.2-1.0) mg/dL AST 18 (15-37) U/L ALT 23 (14-59) U/L Alkaline Phosphatase 96 (46-116) U/L Total Protein 8.0 (6.4-8.2) g/dl Albumin 4.2 (3.4-5.0) g/dl Globulin 3.8 gm/dL Albumin/Globulin Ratio 1.1 (1-2) Meds: Medications Generic Name Dose Route Start Last Admin Trade Name Freq PRN Reason Stop Dose Admin Hydrocodone Bitart/Acetaminophen 1 tab 11/16/18 21:08 [place] 325-5 Mg PO 11/16/18 21:09 ONETIME ONE Sodium Chloride 1,000 mls @ 500 mls/hr 11/16/18 13:45 11/16/18 14:02 Normal Saline IV 500 mls/hr ASDIRECTED LILLIAN Administration Sodium Chloride 10 ml 11/16/18 13:31 11/16/18 14:02 Saline Flush FLUSH 10 ml ASDIRECTED PRN Administration Keep Vein Open Discontinued Medications Generic Name Dose Route Start Last Admin Trade Name Freq PRN Reason Stop Dose Admin Diphenhydramine HCl 25 mg 11/16/18 13:31 11/16/18 13:49 Benadryl IVPUSH 11/16/18 13:32 25 mg ONETIME ONE Administration Hydromorphone HCl 1 mg 11/16/18 15:41 11/16/18 15:52 Dilaudid IVPUSH 11/16/18 15:42 1 mg ONETIME ONE Administration Sodium Chloride 1,000 mls @ 999 mls/hr 11/16/18 17:40 11/16/18 17:45 Normal Saline IV 11/16/18 18:40 999 mls/hr ASDIRECTED ONE Administration Ketorolac Tromethamine 30 mg 11/16/18 13:31 11/16/18 13:52 Toradol IVPUSH 11/16/18 13:32 30 mg ONETIME ONE Administration Metoclopramide HCl 10 mg 11/16/18 13:31 11/16/18 13:46 Reglan IVPUSH 11/16/18 13:32 10 mg ONETIME ONE Administration - Re-Assessments/Exams Free Text/Narrative Re-Assessment/Exam: 11/16/18 13:35 Pt presents to the ED for the evaluation of a headache after LP. This has been 48 hours after the procedure and is still not much better. Have ordered CBC, CMP , IV fluids, 10mg IV reglan, 30mg IV toradol, and 25mg IV benadryl for management and evaluation. It is unclear at this time if she will in fact need a blood patch or not. I am hopeful that she will feel better after the medications I have ordered. 11/16/18 14:31 Pt was checked again at bedside and states that the headache has improved a little bit. The case was consulted with Dr. Esteban. He thinks that she may just have had an adverse affect to the LP and she might need an extended recovery time. He suggested the use of haldol or some dilaudid for further pain relief in the ED, and trying maybe some ativan, ambien or hydrocodone at home with bed rest this weekend. Will present this information to the patient. Due to the fact of her having such adverse reactions to procedures, I am hesitant to recommend a blood patch at this time. If this is not better by sunday, than maybe she would in fact need the blood patch. 11/16/18 15:39 The patient's headache is still pretty intense, I will try to give her 1mg IV dilaudid to see if this brings her some relief, so that she may be able to at least sit up right for a little bit. 11/16/18 17:40 She was given the 1 mg Dilaudid over 2-0.5mg doses. This did help with the pain , and she was able to sit at the side of the bed briefly, but her BP is still a little low, in the high 90s-low 100s systolically. Have ordered 1 more Liter of NS bolus, and encouraged her to try to eat some crackers, and she states that she hasn't ate much all day. 11/16/18 19:29 Pt was sat at the edge of the bed for only around 3-4minutes and she is still unable to tolerate this. Dr. Allen was consulted for possible observation for fluids and pain medications, but she recommends that the only way that she will get better is with a blood patch. Robin Youssef, our CANVAS GOODS FABRICATOR button cutter was consulted via telephone and she will come to evaluate the patient. 11/16/18 21:09 Blood patch has been done and the patient states that she feels a little better , She was advised that she will still have to lay as flat as able for the next 24 hours or so. Nausea and pain medications will be provided. Departure - Departure Time of Disposition: 21:10 Disposition: Home, Self-Care 01 Condition: Fair Clinical Impression: Post lumbar puncture headache - Discharge Information *PRESCRIPTION DRUG MONITORING PROGRAM REVIEWED*: No *COPY OF PRESCRIPTION DRUG MONITORING REPORT IN PATIENT SOHEILA: No Prescriptions: Acetaminophen/HYDROcodone [[place] 325-5 MG] 1 tab PO Q6H PRN #16 tablet PRN Reason: Pain Ondansetron [Zofran ODT] 4 mg PO Q6H PRN #20 tab.dis PRN Reason: Nausea Instructions: Epidural Blood Patch for Spinal Headache, Spinal Headache Referrals: Mignon Alcantara PA-C [Primary Care Provider] - Forms: ED Department Discharge Additional Instructions: You have been evaluated in the ED for your post lumbar puncture headache. You have had fluids and pain medications and also a blood patch for treatment. You will be provided with [place] tablets, please take 1/2 tablet of this with 500mg tylenol every 6 hours as needed for pain. Max 4000mg tylenol in 24 hour time period. Please take the zofran every 6 hours as needed for nausea. Please lay flat as possible for the next 24 hours so that the blood patch may be able to provide you the most benefit. Please return to ED if your symptoms should change or worsen. - My Orders Last 24 Hours: My Active Orders 11/16/18 13:31 Peripheral IV Care [RC] . DIRECTED Sodium Chloride 0.9% [Saline Flush] 10 ml FLUSH ASDIRECTED PRN Peripheral IV Insertion Adult [OM.PC] Routine 11/16/18 13:45 Sodium Chloride 0.9% [Normal Saline] 1,000 ml IV ASDIRECTED 11/16/18 21:07 Ondansetron [Zofran] 4 mg IVPUSH ONETIME ONE 11/16/18 21:08 Acetaminophen/HYDROcodone [[place] 325-5 MG] 1 tab PO ONETIME ONE - Assessment/Plan Last 24 Hours: My Active Orders 11/16/18 13:31 Peripheral IV Care [RC] . DIRECTED Sodium Chloride 0.9% [Saline Flush] 10 ml FLUSH ASDIRECTED PRN Peripheral IV Insertion Adult [OM.PC] Routine 11/16/18 13:45 Sodium Chloride 0.9% [Normal Saline] 1,000 ml IV ASDIRECTED 11/16/18 21:07 Ondansetron [Zofran] 4 mg IVPUSH ONETIME ONE 11/16/18 21:08 Acetaminophen/HYDROcodone [[place] 325-5 MG] 1 tab PO ONETIME ONE
[2018-11-16] MEDS ORDERED: Metoclopramide 10 MG/2 ML SDV IVPUSH ONE (13:31)
[2018-11-16] MEDS ORDERED: Sodium Chloride 0.9% 10 ML Syringe FLUSH PRN (13:31)
[2018-11-16] MEDS ORDERED: Ketorolac 30 MG/ML SDV IVPUSH ONE (13:31)
[2018-11-16] MEDS ORDERED: diphenhydrAMINE 50 MG/ML SDV IVPUSH ONE (13:31)
[2018-11-16] MEDS ORDERED: Sodium Chloride 0.9% 1,000 ML IV SCH (13:45)
[2018-11-16] MEDS ORDERED: HYDROmorphone 1 MG/ML Syringe IVPUSH ONE (15:41)
[2018-11-16] MEDS ORDERED: Sodium Chloride 0.9% 1,000 ML IV ONE (17:40)
[2018-11-16 20:21] VITALS: BP 110/76
--- NOTE | 2018-11-16 20:39 | PCM.SN ---
- Free Text/Narrative Note: 11/16/18 Was called to ER by Elli ZEE for placement of epidural blood patch per her request and Dr. Allen. Had a myelogram in [place] on . See documentation by provider. Classic spinal headache with headache in sitting position and feeling fine while lying down. Patient received fluids and narcotics prior to my arrival. Pt desires blood patch after discussing risks and complications with her and her . Sterile prep and drape while in sitting position. 1% lidocaine for local. 17 g tuohy epidural needle placed with DIANA technique at L4-5. 17 ml of blood obtained from patient's right hand per nurse. Injected 17 ml of blood slowly with not much back pain or pressure. Supine after. Patient resting. Encouraging 1 hour resting and to rest for the next 24 hours. Explained to her that there is a chance she may need another one for symptoms to resolve. See nurses notes for vitals. Stable. Tolerated procedure well. Suha MELO
[2018-11-16] MEDS ORDERED: Ondansetron 4 MG/2 ML SDV IVPUSH ONE (21:07)
[2018-11-16] MEDS ORDERED: Acetaminophen/HYDROcodone 325-5 MG Tab PO ONE (21:08)
== END 2018-11-16 21:43 | disposition home or self-care (01) ==
LOC: JD.ED 11:52
DX: G97.1 Other reaction to spinal and lumbar puncture (principal); Z90.49 Acquired absence of other specified parts of digestive tract; Z90.710 Acquired absence of both cervix and uterus; Z87.891 Personal history of nicotine dependence; Z91.09 Other allergy status, other than to drugs and biological substances
CPT/HCPCS: 36415; 80053; 85007; 85027; 96361; 96374; 96375; 99285; A9270; J1170; J1200; J1885; J2405; J2765; J7040; 62273

== ENCOUNTER 2019-09-22 10:17 | Day surgery (SDC) | payer BC ==
[~2019-09-22 10:17] MED LIST: Lactated Ringers 1,000 ML IV SCH; Lidocaine 1%/Sod Bicarbonate in NS 8.4% 1 ML Syringe IDERM PRN; Sodium Chloride 0.9% 10 ML Syringe FLUSH PRN
--- NOTE | 2019-09-22 12:17 | PCM.PREANE ---
Preanesthetic Assessment - Procedure Proposed Procedure: Egd - Anesthesia/Transfusion/Family Hx Anesthesia History: Prior Anesthesia Without Reaction Family History of Anesthesia Reaction: No Transfusion History: No Prior Transfusion(s) Intubation History: Unknown - Review of Systems General: No Symptoms Pulmonary: No Symptoms Cardiovascular: No Symptoms Gastrointestinal: Abdominal Pain, Nausea Neurological: No Symptoms Other: Reports: None - Physical Assessment NPO Status Date: 09/21/19 NPO Status Time: 21:00 Vital Signs: Last Vital Signs Temp 36.7 C 09/22/19 10:30 Pulse 64 09/22/19 10:30 Resp 20 09/22/19 10:30 BP 111/83 09/22/19 10:30 Pulse Ox 99 09/22/19 10:30 Height: 1.57 m Weight: 73.936 kg ASA Class: 2 Mental Status: Alert & Oriented x3 Airway Class: Mallampati = 2 Dentition: Reports: Dentures Thyro-Mental Finger Breadths: 3 Mouth Opening Finger Breadths: 3 ROM/Head Extension: Full Lungs: Clear to Auscultation, Normal Respiratory Effort Cardiovascular: Regular Rate, Regular Rhythm - Imaging/EKG Impressions: EKG SR rate62 - Allergies Allergies/Adverse Reactions: Allergies Allergy/AdvReac Type Severity Reaction Status Date / Time adhesive tape Allergy Rash Verified 09/10/19 08:40 - Blood Blood Available: No Product(s) Available: None - Anesthesia Plan Pre-Op Medication Ordered: None - Acknowledgements Anesthesia Type Planned: MAC Pt an Appropriate Candidate for the Planned Anesthesia: Yes Alternatives and Risks of Anesthesia Discussed w Pt/Guardian: Yes Pt/Guardian Understands and Agrees with Anesthesia Plan: Yes PreAnesthesia Questionnaire HEENT History: Reports: Impaired Vision Other HEENT History: wear glasses Cardiovascular History: Reports: Other (See Below) Respiratory History: Reports: Other (See Below) Other Respiratory History: SEVERE Snoring with possible Apnea Gastrointestinal History: Reports: GERD, Hiatal Hernia Other Gastrointestinal History: denies abd pain- but still has hiatal hernia COLOR WEIGHER History: Reports: Other (See Below) Other OB/BYN History: breast Lump and breast pain/swelling, pelvic pain Neurological History: Reports: Other (See Below) Other Neuro History: neuropathy, Chronic Pain Syndrome Psychiatric History: Reports: Anxiety, Depression Oncologic (Cancer) History: Reports: None - Past Surgical History GI Surgical History: Reports: Appendectomy, Cholecystectomy, Colonoscopy, EGD Female Surgical History: Reports: Breast Biopsy, Section, Hysterectomy Other Female Surgeries/Procedures: adhesions removed Musculoskeletal Surgical History: Reports: Other (See Below) - SUBSTANCE USE Smoking Status *Q: Former Smoker Tobacco Use Within Last Twelve Months: No Second Hand Smoke Exposure: Yes Days Per Week of Alcohol Use: 0 Number of Drinks Per Day: 0 Total Drinks Per Week: 0 Recreational Drug Use History: No - HOME MEDS Home Medications: Home Meds Desog-E.Estradiol/E.Estradiol [Kariva 28 Day] 1 tab PO DAILY 12/12/17 [History] Pantoprazole Sodium [Protonix] 40 mg PO DAILY 12/24/18 [History] Ondansetron [Zofran ODT] 4 mg PO Q6H PRN #10 tab.dis 09/10/19 [Rx] Sucralfate [Carafate] 1 gm PO ASDIRECTED #25 tablet 09/10/19 [Rx] hydroCHLOROthiazide [Hydrochlorothiazide] 25 mg PO DAILY 09/10/19 [History] ALPRAZolam [Xanax] 0.25 mg PO Q8HR PRN 09/22/19 [History] Escitalopram [Lexapro] 20 mg PO BEDTIME 09/22/19 [History] SUMAtriptan [Imitrex] 25 mg PO ASDIRECTED PRN 09/22/19 [History] Venlafaxine [Effexor XR] 37.5 mg PO DAILY 09/22/19 [History] hydrOXYzine HCl [hydrOXYzine] 50 mg PO BEDTIME PRN 09/22/19 [History] - CURRENT (IN HOUSE) MEDS Current Meds: Current Medications Lactated Ringer's (Ringers, Lactated) 1,000 mls @ 125 mls/hr IV ASDIRECTED LILLIAN Stop: 09/22/19 23:00 Last Admin: 09/22/19 10:40 Dose: 125 mls/hr Lidocaine/Sodium Bicarbonate (Buffered Lidocaine 1% In Ns 8.4%) 0.25 ml IDERM ONETIME PRN PRN Reason: Prior to IV Start Stop: 09/22/19 18:00 Last Admin: 09/22/19 10:39 Dose: 0.25 ml Sodium Chloride (Saline Flush) 10 ml FLUSH ASDIRECTED PRN PRN Reason: Keep Vein Open Stop: 09/22/19 18:00
[2019-09-22] MEDS ORDERED: Propofol 200 MG/20 ML SDV ONE (12:22)
[2019-09-22] MEDS ORDERED: fentaNYL 100 MCG/2 ML SDV ONE (12:22)
[2019-09-22] MEDS ORDERED: Midazolam 1 MG/ML 2 ML SDV ONE (12:22)
[2019-09-22] MEDS ORDERED: Lidocaine 1% 4 ML ONE (12:23)
--- NOTE | 2019-09-22 12:53 | PCM48HPAN ---
Post Anesthesia Note - EVALUATION WITHIN 48HRS OF ANESTHETIC Vital Signs in Normal Range: Yes Patient Participated in Evaluation: Yes Respiratory Function Stable: Yes Airway Patent: Yes Cardiovascular Function Stable: Yes Hydration Status Stable: Yes Pain Control Satisfactory: Yes Nausea and Vomiting Control Satisfactory: Yes Mental Status Recovered: Yes Vital Signs: Last Vital Signs Temp 36.7 C 09/22/19 10:30 Pulse 64 09/22/19 10:30 Resp 20 09/22/19 10:30 BP 111/83 09/22/19 10:30 Pulse Ox 99 09/22/19 10:30 - COMMENTS/OBSERVATIONS Free Text/Narrative:: no anesthesia complications noted
[2019-09-22 13:15] VITALS: BP 100/69; PULSE 78
--- NOTE | 2019-09-22 14:52 | OR ---
DATE OF OPERATION: 09/22/2019 SURGEON: Jorge Mas MD PREOPERATIVE DIAGNOSIS: Epigastric pain. POSTOPERATIVE DIAGNOSES: 1. Gastritis. 2. Mild esophagitis. OPERATION PERFORMED: Esophagogastroduodenoscopy with biopsies. COMPLICATIONS: None. ANESTHESIA: Monitored anesthesia care. ESTIMATED BLOOD LOSS: Minimal. INDICATION AND CONSENT: Ms. Franklin is a 44-year-old female who started having acute onset of abdominal pain about 2 weeks ago. This is epigastric pain that is radiating to the back and lower back. The patient presented to her PCP and underwent a CT scan that was unremarkable and the patient was sent to me for further evaluation. Upon discussing, the patient was concerned about gastritis or PUD. Therefore, I offered the patient an esophagogastroduodenoscopy. The patient agreed to proceed with procedure after discussing the risks, benefits, and alternatives, and informed consent was obtained. PROCEDURE IN DETAIL: The patient was taken to the procedure room, placed in left lateral decubitus position. Following induction of monitored care anesthesia, time-out was performed and an EGD scope was advanced through the mouth all the way down to the second portion of duodenum and photographs were taken. Duodenum appeared normal. Duodenal bulb was normal. The stomach and antrum were inflamed with patchy erosions of the mucosa. Biopsies were taken here for H. pylori as well as histology. The stomach body appeared mildly inflamed. Upon retroflexion views, there really was no hiatal hernia or inflammation of the cardia. The scope was withdrawn slowly into the GE junction which was about 35 mm from incisors to Z-line. The Z-line appeared somewhat irregular. Biopsies were taken for histologic examination. Distal esophagus appeared to be mildly inflamed. Biopsies were taken for histologic examination. All biopsies were taken with cold forceps. At this point, the stomach was desufflated and all biopsy areas were examined, appeared to be hemostatic. The scope was slowly withdrawn. The rest of the esophagus appeared to be normal. At the end of the procedure, no immediate complications. The patient was awoken from monitored anesthesia and taken to the PACU for further recovery. The patient will get esophagram and follow up with me in 3 weeks for further discussion. MMODAL /[id number] [facility]Gil
== END 2019-09-22 13:49 | disposition home or self-care (01) ==
LOC: JD.SDS 10:17
PROVIDERS: ATTEND Surgery
DX: K25.9 Gastric ulcer, unspecified as acute or chronic, without hemorrhage or perforation (principal); K21.0 Gastro-esophageal reflux disease with esophagitis; K44.9 Diaphragmatic hernia without obstruction or gangrene; G90.511 Complex regional pain syndrome I of right upper limb; F33.1 Major depressive disorder, recurrent, moderate; F41.9 Anxiety disorder, unspecified; G43.909 Migraine, unspecified, not intractable, without status migrainosus; E66.3 Overweight; Z68.29 Body mass index [BMI] 29.0-29.9, adult; Z79.899 Other long term (current) drug therapy; Z87.891 Personal history of nicotine dependence
CPT/HCPCS: 43239; 93005; J2001; J2250; J2704; J3010; J7120

== ENCOUNTER 2022-06-25 13:43 | Emergency (ER) | payer OTHER ==
[2022-06-25 14:11] VITALS: BP 115/77; PULSE 85
[2022-06-25] MEDS ORDERED: HYDROmorphone 1 MG/ML Syringe IM ONE (15:37)
[2022-06-25] MEDS ORDERED: Promethazine 25 MG/ML SDV IM ONE (15:38)
== END 2022-06-25 17:02 | disposition home or self-care (01) ==
LOC: JD.ED 13:43
DX: S13.9XXA Sprain of joints and ligaments of unspecified parts of neck, initial encounter (principal); K21.9 Gastro-esophageal reflux disease without esophagitis; Z91.048 Other nonmedicinal substance allergy status; Z79.899 Other long term (current) drug therapy; Z90.49 Acquired absence of other specified parts of digestive tract; V49.40XA Driver injured in collision with unspecified motor vehicles in traffic accident, initial encounter; Y92.410 Unspecified street and highway as the place of occurrence of the external cause
CPT/HCPCS: 96372; 99283; J1170; J2550

== ENCOUNTER 2022-07-27 19:55 | Emergency (ER) | payer OTHER ==
[2022-07-27] MEDS ORDERED: Iopamidol 755 Mg/ML 100 ML Bottle IV ONE (19:56)
[2022-07-27] MEDS ORDERED: Morphine 4 MG/ML Syringe IVPUSH ONE (22:30)
[2022-07-27] MEDS ORDERED: Morphine 4 MG/ML Syringe ONE (23:05)
[2022-07-27] MEDS ORDERED: Sodium Chloride 0.9% 10 ML Syringe FLUSH ONE (23:40)
[2022-07-27] MEDS ORDERED: Iopamidol 612 MG/ML 100 ML Bottle IVPUSH ONE (23:40)
[2022-07-28 00:16] LABS: ESTIMATED GFR 79 mL/min (>60)
[2022-07-28] MEDS ORDERED: Cephalexin 500 MG Cap PO ONE (01:25)
[2022-07-28] MEDS ORDERED: Cephalexin 500 MG Cap ONE (01:32)
== END 2022-07-28 01:35 | disposition home or self-care (01) ==
LOC: JD.ED 19:55
DX: N39.0 Urinary tract infection, site not specified (principal); R74.8 Abnormal levels of other serum enzymes; Z98.890 Other specified postprocedural states
CPT/HCPCS: 36415; 74177; 74177-26; 80053; 81001; 83605; 83690; 85025; 96374; 99284-25; A9270-GY; J2270; Q9967

== ENCOUNTER 2023-01-03 12:53 | Emergency (ER) | payer OTHER ==
[2023-01-03 13:03] VITALS: BP 112/80; PULSE 72
== END 2023-01-03 15:02 | disposition home or self-care (01) ==
LOC: JD.ED 12:53
DX: R07.89 Other chest pain (principal); K21.9 Gastro-esophageal reflux disease without esophagitis; E66.9 Obesity, unspecified; Z68.34 Body mass index [BMI] 34.0-34.9, adult; Z91.048 Other nonmedicinal substance allergy status; Z79.899 Other long term (current) drug therapy
CPT/HCPCS: 36415; 71046; 71046-26; 80053; 83880; 84484; 85025; 85379; 93005; 93010; 99284; 99285

== ENCOUNTER 2023-02-15 16:12 | Emergency (ER) | payer OTHER ==
[2023-02-15 16:25] VITALS: BP 125/75; PULSE 81
[2023-02-15] MEDS ORDERED: HYDROmorphone 1 MG/ML Syringe IM ONE (17:05)
[2023-02-15] MEDS ORDERED: Iopamidol 612 MG/ML 100 ML Bottle IVPUSH ONE (17:55)
[2023-02-15 18:56] LABS: ESTIMATED GFR 79 mL/min (>60)
[2023-02-15] MEDS ORDERED: Ketorolac 30 MG/ML SDV IVPUSH ONE (19:34)
== END 2023-02-15 19:50 | disposition home or self-care (01) ==
LOC: JD.ED 16:12
DX: R10.84 Generalized abdominal pain (principal); K21.9 Gastro-esophageal reflux disease without esophagitis; E66.9 Obesity, unspecified; Z68.34 Body mass index [BMI] 34.0-34.9, adult; Z91.048 Other nonmedicinal substance allergy status
CPT/HCPCS: 36415; 74177; 80053; 85025; 86140; 99284; J1170; J1885; Q9967

== ENCOUNTER 2023-12-07 15:04 | Emergency (ER) | payer OTHER ==
[2023-12-07] MEDS: Sodium Chloride 0.9% 1,000 ML IV SCH (16:06)
[2023-12-07] MEDS: Ondansetron 4 MG/2 ML SDV IVPUSH ONE (16:06)
[2023-12-07] MEDS: Sodium Chloride 0.9% 10 ML Syringe FLUSH PRN (16:07)
[2023-12-07] MEDS: HYDROmorphone 0.5 MG/0.5 ML Syringe IVPUSH ONE (16:07)
[2023-12-07 16:56] LABS: APPEARANCE,URINE CLEAR (Clear); BILIRUBIN,URINE NEGATIVE (Negative); COLOR,URINE YELLOW (Yellow); GLUCOSE,URINE NEGATIVE (Negative); KETONES,URINE NEGATIVE (Negative); LEUKOCYTE ESTERASE,URINE NEGATIVE (Negative); NITRITE,URINE NEGATIVE (Negative); OCCULT BLOOD,URINE NEGATIVE (Negative); PROTEIN,URINE TRACE (Negative); UROBILINOGEN,URINE 0.2 (0.2-1.0)
[2023-12-07 17:18] LABS: BACTERIA,URINE FEW /hpf (FEW); MUCUS,URINE FEW /hpf (FEW); RBC,URINE 0-5 /hpf (0-5); SQUAMOUS EPITHELIAL CELLS,UR 0-5 /hpf (0-5); WBC,URINE 0-5 /hpf (0-5)
[2023-12-07 18:04] VITALS: BP 101/67; PULSE 66
== END 2023-12-07 18:06 | disposition home or self-care (01) ==
LOC: JD.ED 15:04
DX: K52.9 Noninfective gastroenteritis and colitis, unspecified (principal); K21.9 Gastro-esophageal reflux disease without esophagitis; E66.9 Obesity, unspecified; Z90.49 Acquired absence of other specified parts of digestive tract; Z90.710 Acquired absence of both cervix and uterus; Z79.899 Other long term (current) drug therapy; Z91.048 Other nonmedicinal substance allergy status; Z68.32 Body mass index [BMI] 32.0-32.9, adult
CPT/HCPCS: 81001; 96361; 96374; 96375; 99284; J1170; J2405; J3490; J7030

== ENCOUNTER 2023-12-09 11:25 | Emergency (ER) | payer OTHER ==
[2023-12-09 11:53] VITALS: BP 135/86; PULSE 86
[2023-12-09 12:28] LABS: BASOPHILS PERCENT AUTO 0.5 % (0.0-1.0); EOSINOPHILS ABSOLUTE AUTO 0.1 K/mm3 (0.0-0.4); EOSINOPHILS PERCENT AUTO 1.4 % (0.0-6.0); HEMATOCRIT 41.9 % (37.0-47.0); IMMATURE GRAN ABSOLUTE AUTO 0.01 K/mm3 (0.00-0.05); IMMATURE GRAN PERCENT AUTO 0.2 % (0.0-0.4); LYMPHOCYTES ABSOLUTE AUTO 1.3 K/mm3 (1.0-4.8); LYMPHOCYTES PERCENT AUTO 22.4 % (24.0-44.0); MEAN CORPUSCULAR HEMOGLOBIN 29.5 pg (28.0-32.0); MEAN CORPUSCULAR HGB CONC 33.4 g/dl (32.0-36.0); MEAN CORPUSCULAR VOLUME 88.2 fl (83.0-99.0); MEAN PLATELET VOLUME 8.6 fl (9.4-12.3); MONOCYTES ABSOLUTE AUTO 0.3 K/mm3 (0.0-0.8); MONOCYTES PERCENT AUTO 4.4 % (0.0-8.0); NEUTROPHILS PERCENT AUTO 71.1 % (41.0-71.0); PLATELET COUNT,PLT 230 K/mm3 (150-400); RED BLOOD CELL COUNT 4.75 M/mm3 (4.10-5.30); WHITE BLOOD CELL COUNT,WBC 5.63 K/mm3 (3.9-11.3)
[2023-12-09] MEDS: Ondansetron 4 MG Tab.DIS PO ONE (12:38)
[2023-12-09] MEDS: Acetaminophen/HYDROcodone 325-5 MG Tab PO ONE (12:38)
[2023-12-09 12:56] LABS: LACTIC ACID 0.8 mmol/L (0.4-2.0)
[2023-12-09 13:02] LABS: A/G RATIO 1.1 (1-2); ALANINE AMINOTRANSFERASE,ALT 22 U/L (14-59); ALBUMIN 3.5 g/dl (3.4-5.0); ALKALINE PHOSPHATASE 116 U/L (46-116); ANION GAP 13.2 (5-15); ASPARTATE AMNIOTRANSFERASE,AST 16 U/L (15-37); BILIRUBIN TOTAL 0.3 mg/dL (0.2-1.0); BLOOD UREA NITROGEN,BUN 13 mg/dL (7-18); BUN/CREATININE RATIO 14.4 (14-18); C-REACTIVE PROTEIN <0.2 mg/dL (<1.0); CARBON DIOXIDE,CO2 26 mEq/L (21-32); CHLORIDE,CL 106 mEq/L (98-107); CREATININE 0.9 mg/dL (0.55-1.02); ESTIMATED GFR 78 mL/min (>60); GLUCOSE RANDOM 99 mg/dL (70-99); MAGNESIUM 1.8 mg/dL (1.8-2.4); POTASSIUM,K 4.2 mEq/L (3.5-5.1); PROTEIN TOTAL,TP 6.7 g/dl (6.4-8.2); SODIUM,NA 141 mEq/L (136-145)
[2023-12-09] MEDS: Famotidine 20 MG Tab PO ONE (14:29)
[2023-12-09 14:41] LABS: APPEARANCE,URINE CLEAR (Clear); BILIRUBIN,URINE NEGATIVE (Negative); COLOR,URINE YELLOW (Yellow); GLUCOSE,URINE NEGATIVE (Negative); KETONES,URINE NEGATIVE (Negative); LEUKOCYTE ESTERASE,URINE TRACE (Negative); NITRITE,URINE NEGATIVE (Negative); OCCULT BLOOD,URINE TRACE-INTACT (Negative); PROTEIN,URINE NEGATIVE (Negative); UROBILINOGEN,URINE 0.2 (0.2-1.0)
[2023-12-09 14:53] LABS: BACTERIA,URINE RARE /hpf (FEW); EPITHELIAL CELLS,URINE NOT SEEN /hpf (0-5); MUCUS,URINE FEW /hpf (FEW); RBC,URINE 0-5 /hpf (0-5); WBC,URINE 0-5 /hpf (0-5)
[2023-12-09] MEDS: Iopamidol 612 MG/ML 100 ML Bottle IVPUSH ONE (15:05)
[2023-12-09] MEDS: Dicyclomine 10 MG Cap PO ONE (16:15)
== END 2023-12-09 16:19 | disposition home or self-care (01) ==
LOC: JD.ED 11:25
DX: R10.30 Lower abdominal pain, unspecified (principal); K21.9 Gastro-esophageal reflux disease without esophagitis; E66.9 Obesity, unspecified; Z68.32 Body mass index [BMI] 32.0-32.9, adult; Z91.048 Other nonmedicinal substance allergy status; Z79.899 Other long term (current) drug therapy
CPT/HCPCS: 36415; 74177; 80053; 81001; 83605; 83735; 85025; 86140; 87086; 99284; A9270; Q9967

== ENCOUNTER 2024-01-09 09:42 | Day surgery (SDC) | payer OTHER ==
[~2024-01-09 09:42] MED LIST changes: -Lactated Ringers 1,000 ML IV SCH; -Lidocaine 1%/Sod Bicarbonate in NS 8.4% 1 ML Syringe IDERM PRN; +Sodium Chloride 0.9% 10 ML Syringe FLUSH SCH
[2024-01-09] MEDS ORDERED: Midazolam 1 MG/ML 2 ML SDV ONE (09:50)
[2024-01-09] MEDS ORDERED: Lidocaine 1% 4 ML ONE (09:50)
[2024-01-09] MEDS ORDERED: fentaNYL 100 MCG/2 ML SDV ONE (09:50)
[2024-01-09] MEDS ORDERED: Propofol 200 MG/20 ML SDV ONE ×3 (09:50→11:59)
[2024-01-09] MEDS: Lactated Ringers 1,000 ML IV SCH (10:05)
[2024-01-09] MEDS: Dicyclomine 10 MG Cap PO ONE (14:06)
[2024-01-09 14:57] VITALS: BP 104/85; PULSE 74
== END 2024-01-09 14:20 | disposition home or self-care (01) ==
LOC: JD.SDS 09:42
PROVIDERS: ATTEND Surgery
DX: D12.4 Benign neoplasm of descending colon (principal); K21.9 Gastro-esophageal reflux disease without esophagitis; G47.00 Insomnia, unspecified; R10.84 Generalized abdominal pain; R23.1 Pallor; R12 Heartburn; R10.32 Left lower quadrant pain; K52.9 Noninfective gastroenteritis and colitis, unspecified; E66.9 Obesity, unspecified; Z68.29 Body mass index [BMI] 29.0-29.9, adult; Z88.2 Allergy status to sulfonamides; Z79.899 Other long term (current) drug therapy; Z87.891 Personal history of nicotine dependence
CPT/HCPCS: 74018; A9270; J2250; J2704; J3010; J7120; 00813; J3490

== ENCOUNTER 2024-02-03 17:32 | Emergency (ER) | payer OTHER ==
[2024-02-03] MEDS ORDERED: Sodium Chloride 0.9% 10 ML Syringe FLUSH PRN (18:09)
[2024-02-03 18:34] LABS: BASOPHILS PERCENT AUTO 0.4 % (0.0-1.0); EOSINOPHILS ABSOLUTE AUTO 0.1 K/mm3 (0.0-0.4); EOSINOPHILS PERCENT AUTO 1.6 % (0.0-6.0); HEMATOCRIT 37.9 % (37.0-47.0); HEMOGLOBIN 12.8 gm/dl (12.0-16.0); IMMATURE GRAN ABSOLUTE AUTO 0.01 K/mm3 (0.00-0.05); IMMATURE GRAN PERCENT AUTO 0.1 % (0.0-0.4); LYMPHOCYTES ABSOLUTE AUTO 1.8 K/mm3 (1.0-4.8); LYMPHOCYTES PERCENT AUTO 27.2 % (24.0-44.0); MEAN CORPUSCULAR HEMOGLOBIN 29.8 pg (28.0-32.0); MEAN CORPUSCULAR HGB CONC 33.8 g/dl (32.0-36.0); MEAN CORPUSCULAR VOLUME 88.3 fl (83.0-99.0); MEAN PLATELET VOLUME 8.6 fl (9.4-12.3); MONOCYTES ABSOLUTE AUTO 0.4 K/mm3 (0.0-0.8); MONOCYTES PERCENT AUTO 6.4 % (0.0-8.0); NEUTROPHILS ABSOLUTE AUTO 4.3 K/mm3 (1.8-7.7); NEUTROPHILS PERCENT AUTO 64.3 % (41.0-71.0); PLATELET COUNT,PLT 239 K/mm3 (150-400); RED BLOOD CELL COUNT 4.29 M/mm3 (4.10-5.30)
[2024-02-03 18:55] LABS: A/G RATIO 1.4 (1-2); ALBUMIN 3.9 g/dl (3.4-5.0); ANION GAP 14.8 (5-15); BILIRUBIN TOTAL 0.4 mg/dL (0.2-1.0); CALCIUM 9.5 mg/dL (8.5-10.1); EST CRCL DRUG DOSING (CG) 53.82 mL/min; MAGNESIUM 2.1 mg/dL (1.8-2.4); POTASSIUM,K 3.8 mEq/L (3.5-5.1); PROTEIN TOTAL,TP 6.7 g/dl (6.4-8.2)
[2024-02-03 19:22] LABS: CORONAVIRUS COVID-19 NAA NEGATIVE (NEGATIVE); INFLUENZA A NAA NEGATIVE (NEGATIVE); RESPIRATORY SYNCYTIAL VIR NAA NEGATIVE (NEGATIVE)
[2024-02-03] MEDS: Sodium Chloride 0.9% 1,000 ML IV ONE (20:03)
[2024-02-03] MEDS: Acetaminophen 325 MG Tab PO ONE (20:03)
[2024-02-03] MEDS: Ketorolac 15 MG/ML SDV IVPUSH ONE (20:03)
[2024-02-03] MEDS: Metoclopramide 10 MG/2 ML SDV IVPUSH ONE (21:21)
[2024-02-03] MEDS: diphenhydrAMINE 50 MG/ML SDV IVPUSH ONE (21:21)
[2024-02-03 21:54] VITALS: BP 117/71; PULSE 82
== END 2024-02-03 22:00 | disposition home or self-care (01) ==
LOC: JD.ED 17:32
DX: R55 Syncope and collapse (principal); R51.9 Headache, unspecified; E66.9 Obesity, unspecified; Z91.048 Other nonmedicinal substance allergy status; Z88.8 Allergy status to other drugs, medicaments and biological substances; Z79.899 Other long term (current) drug therapy; Z86.19 Personal history of other infectious and parasitic diseases; Z68.32 Body mass index [BMI] 32.0-32.9, adult
CPT/HCPCS: 0241U; 36415; 80053; 83735; 85025; 93005; 96361; 96374; 96375; 99284; A9270; J1200; J1885; J2765; J7030

== ENCOUNTER 2024-07-09 16:46 | Emergency (ER) | payer OTHER ==
[2024-07-09 16:59] VITALS: BP 125/96; PULSE 72
[2024-07-09 17:36] LABS: BASOPHILS PERCENT AUTO 0.5 % (0.0-1.0); EOSINOPHILS ABSOLUTE AUTO 0.2 K/mm3 (0.0-0.4); HEMOGLOBIN 13.6 gm/dl (12.0-16.0); IMMATURE GRAN ABSOLUTE AUTO 0.01 K/mm3 (0.00-0.05); IMMATURE GRAN PERCENT AUTO 0.1 % (0.0-0.4); LYMPHOCYTES ABSOLUTE AUTO 1.8 K/mm3 (1.0-4.8); LYMPHOCYTES PERCENT AUTO 24.8 % (24.0-44.0); MEAN CORPUSCULAR HEMOGLOBIN 29.7 pg (28.0-32.0); MEAN CORPUSCULAR HGB CONC 33.2 g/dl (32.0-36.0); MEAN CORPUSCULAR VOLUME 89.5 fl (83.0-99.0); MEAN PLATELET VOLUME 9.1 fl (9.4-12.3); MONOCYTES ABSOLUTE AUTO 0.4 K/mm3 (0.0-0.8); MONOCYTES PERCENT AUTO 5.3 % (0.0-8.0); NEUTROPHILS ABSOLUTE AUTO 4.9 K/mm3 (1.8-7.7); NEUTROPHILS PERCENT AUTO 67.3 % (41.0-71.0); PLATELET COUNT,PLT 254 K/mm3 (150-400); RED BLOOD CELL COUNT 4.58 M/mm3 (4.10-5.30); WHITE BLOOD CELL COUNT,WBC 7.34 K/mm3 (3.9-11.3)
[2024-07-09 17:53] LABS: INR 0.95; PROTHROMBIN TIME 10.1 SECONDS (9.7-12.0)
[2024-07-09 17:54] LABS: PTT,PARTIAL THROMBOPLSTIN TIME 25.9 SECONDS (21.7-31.4)
[2024-07-09 18:04] LABS: A/G RATIO 1.1 (1-2); ALANINE AMINOTRANSFERASE,ALT 28 U/L (14-59); ALBUMIN 3.6 g/dl (3.4-5.0); ALKALINE PHOSPHATASE 145 U/L (46-116); ANION GAP 11.3 (5-15); ASPARTATE AMNIOTRANSFERASE,AST 20 U/L (15-37); BILIRUBIN TOTAL 0.3 mg/dL (0.2-1.0); BLOOD UREA NITROGEN,BUN 13 mg/dL (7-18); BUN/CREATININE RATIO 14.4 (14-18); CARBON DIOXIDE,CO2 28 mEq/L (21-32); CHLORIDE,CL 107 mEq/L (98-107); CREATININE 0.9 mg/dL (0.55-1.02); EST CRCL DRUG DOSING (CG) 59.15 mL/min; ESTIMATED GFR 78 mL/min (>60); GLUCOSE RANDOM 118 mg/dL (70-99); MAGNESIUM 2.1 mg/dL (1.8-2.4); POTASSIUM,K 4.3 mEq/L (3.5-5.1); PROTEIN TOTAL,TP 6.8 g/dl (6.4-8.2); SODIUM,NA 142 mEq/L (136-145)
[2024-07-09] MEDS: diphenhydrAMINE 50 MG/ML SDV IVPUSH ONE (18:05)
[2024-07-09] MEDS: Metoclopramide 10 MG/2 ML SDV IVPUSH ONE (18:06)
[2024-07-09] MEDS: Ketorolac 30 MG/ML SDV IVPUSH ONE (18:06)
[2024-07-09] MEDS: Lactated Ringers 1,000 ML IV SCH (18:06)
[2024-07-09 18:11] LABS: TROPONIN I HIGH SENSITIVITY < 4 pg/mL (<=51)
[2024-07-09] MEDS: Ondansetron 4 MG/2 ML SDV IVPUSH ONE (18:37)
[2024-07-09] MEDS: Acetaminophen 325 MG Tab PO ONE (20:17)
[2024-07-09] MEDS: SUMAtriptan 6 MG/0.5 ML SDV SUBCUT ONE (20:18)
== END 2024-07-09 21:21 | disposition home or self-care (01) ==
LOC: JD.ED 16:46
DX: G43.909 Migraine, unspecified, not intractable, without status migrainosus (principal); R07.9 Chest pain, unspecified; E66.9 Obesity, unspecified; Z79.899 Other long term (current) drug therapy; Z88.8 Allergy status to other drugs, medicaments and biological substances; Z91.048 Other nonmedicinal substance allergy status
CPT/HCPCS: 36415; 70450; 71045; 80053; 83735; 83880; 84484; 85025; 85610; 85730; 87635; 93005; 96361; 96372; 96374; 96375; 99285; A9270; J1200; J1885; J2405; J3030; J7120; U0002

== ENCOUNTER 2024-08-27 20:22 | Emergency (ER) | payer OTHER ==
[2024-08-27] MEDS: Ondansetron 4 MG/2 ML SDV IVPUSH ONE (21:06)
[2024-08-27] MEDS: Ketorolac 30 MG/ML SDV IVPUSH ONE (21:08)
[2024-08-27] MEDS: HYDROmorphone 0.5 MG/0.5 ML Syringe IVPUSH ONE (21:10)
[2024-08-27] MEDS: Sodium Chloride 0.9% 10 ML Syringe FLUSH PRN (21:14)
[2024-08-27] MEDS: cefTRIAXone 2 GM in Sodium Chloride 0.9% 100 ML IV ONE (21:14)
[2024-08-27 22:23] VITALS: BP 105/70; PULSE 77
== END 2024-08-27 22:20 | disposition home or self-care (01) ==
LOC: JD.ED 20:22
DX: H66.003 Acute suppurative otitis media without spontaneous rupture of ear drum, bilateral (principal); J01.90 Acute sinusitis, unspecified; E66.9 Obesity, unspecified; Z68.32 Body mass index [BMI] 32.0-32.9, adult; Z90.49 Acquired absence of other specified parts of digestive tract; Z90.710 Acquired absence of both cervix and uterus; Z87.891 Personal history of nicotine dependence; Z79.899 Other long term (current) drug therapy; Z91.048 Other nonmedicinal substance allergy status; Z88.8 Allergy status to other drugs, medicaments and biological substances
CPT/HCPCS: 96365; 96375; 99283; J0696; J1171; J1885; J2405; J3490

== ENCOUNTER 2024-11-02 11:56 | Emergency (ER) | payer OTHER ==
[2024-11-02 13:02] LABS: APPEARANCE,URINE CLEAR (Clear); BILIRUBIN,URINE NEGATIVE (Negative); COLOR,URINE YELLOW (Yellow); GLUCOSE,URINE NEGATIVE (Negative); KETONES,URINE NEGATIVE (Negative); LEUKOCYTE ESTERASE,URINE NEGATIVE (Negative); NITRITE,URINE NEGATIVE (Negative); OCCULT BLOOD,URINE NEGATIVE (Negative); PROTEIN,URINE NEGATIVE (Negative); UROBILINOGEN,URINE 0.2 (0.2-1.0)
[2024-11-02 13:28] LABS: BASOPHILS PERCENT AUTO 0.3 % (0.0-1.0); EOSINOPHILS ABSOLUTE AUTO 0.1 K/mm3 (0.0-0.4); EOSINOPHILS PERCENT AUTO 1.2 % (0.0-6.0); HEMATOCRIT 40.2 % (37.0-47.0); HEMOGLOBIN 13.1 gm/dl (12.0-16.0); IMMATURE GRAN ABSOLUTE AUTO 0.02 K/mm3 (0.00-0.05); IMMATURE GRAN PERCENT AUTO 0.3 % (0.0-0.4); LYMPHOCYTES ABSOLUTE AUTO 1.3 K/mm3 (1.0-4.8); LYMPHOCYTES PERCENT AUTO 19.1 % (24.0-44.0); MEAN CORPUSCULAR HEMOGLOBIN 28.9 pg (28.0-32.0); MEAN CORPUSCULAR HGB CONC 32.6 g/dl (32.0-36.0); MEAN CORPUSCULAR VOLUME 88.7 fl (83.0-99.0); MEAN PLATELET VOLUME 9.1 fl (9.4-12.3); MONOCYTES ABSOLUTE AUTO 0.4 K/mm3 (0.0-0.8); MONOCYTES PERCENT AUTO 6.6 % (0.0-8.0); NEUTROPHILS ABSOLUTE AUTO 4.9 K/mm3 (1.8-7.7); NEUTROPHILS PERCENT AUTO 72.5 % (41.0-71.0); PLATELET COUNT,PLT 231 K/mm3 (150-400); RED BLOOD CELL COUNT 4.53 M/mm3 (4.10-5.30); WHITE BLOOD CELL COUNT,WBC 6.71 K/mm3 (3.9-11.3)
[2024-11-02 13:52] LABS: A/G RATIO 1.1 (1-2); ALANINE AMINOTRANSFERASE,ALT 32 U/L (14-59); ALBUMIN 3.4 g/dl (3.4-5.0); ALKALINE PHOSPHATASE 129 U/L (46-116); ANION GAP 14.8 (5-15); ASPARTATE AMNIOTRANSFERASE,AST 21 U/L (15-37); BILIRUBIN TOTAL 0.3 mg/dL (0.2-1.0); BLOOD UREA NITROGEN,BUN 23 mg/dL (7-18); BUN/CREATININE RATIO 25.6 (14-18); CALCIUM 8.8 mg/dL (8.5-10.1); CARBON DIOXIDE,CO2 24 mEq/L (21-32); CHLORIDE,CL 105 mEq/L (98-107); CREATININE 0.9 mg/dL (0.55-1.02); EST CRCL DRUG DOSING (CG) 59.15 mL/min; ESTIMATED GFR 78 mL/min (>60); GLUCOSE RANDOM 88 mg/dL (70-99); POTASSIUM,K 4.8 mEq/L (3.5-5.1); PROTEIN TOTAL,TP 6.6 g/dl (6.4-8.2); SODIUM,NA 139 mEq/L (136-145)
[2024-11-02 13:53] LABS: C-REACTIVE PROTEIN < 0.05 mg/dL (<0.30); TROPONIN I HIGH SENSITIVITY < 4 pg/mL (<=51)
[2024-11-02] MEDS: Sodium Chloride 0.9% 10 ML Syringe FLUSH PRN (14:05)
[2024-11-02] MEDS: Morphine 4 MG/ML Syringe IVPUSH PRN ×2 (14:05→15:05)
[2024-11-02] MEDS: Iopamidol 612 MG/ML 100 ML Bottle IVPUSH ONE (15:17)
[2024-11-02] MEDS: Sodium Chloride 0.9% 10 ML Syringe FLUSH ONE (15:17)
[2024-11-02 17:38] VITALS: BP 100/64; PULSE 68
== END 2024-11-02 17:27 | disposition home or self-care (01) ==
LOC: JD.ED 11:56
DX: R10.32 Left lower quadrant pain (principal); E66.9 Obesity, unspecified; Z90.49 Acquired absence of other specified parts of digestive tract; Z90.710 Acquired absence of both cervix and uterus; Z79.899 Other long term (current) drug therapy; Z91.048 Other nonmedicinal substance allergy status; Z88.8 Allergy status to other drugs, medicaments and biological substances; Z68.34 Body mass index [BMI] 34.0-34.9, adult
CPT/HCPCS: 36415; 74177; 80053; 81003; 83735; 84484; 85025; 85379; 86140; 93005; 96374; 96376; 99284; J2270; Q9967; 93010; 99283

== ENCOUNTER 2024-11-04 14:34 | Emergency (ER) | payer OTHER ==
[2024-11-04] MEDS ORDERED: Sodium Chloride 0.9% 10 ML Syringe FLUSH PRN (19:29)
[2024-11-04 20:01] LABS: BASOPHILS PERCENT AUTO 0.3 % (0.0-1.0); EOSINOPHILS ABSOLUTE AUTO 0.1 K/mm3 (0.0-0.4); EOSINOPHILS PERCENT AUTO 1.3 % (0.0-6.0); HEMATOCRIT 42.5 % (37.0-47.0); HEMOGLOBIN 13.8 gm/dl (12.0-16.0); IMMATURE GRAN ABSOLUTE AUTO 0.01 K/mm3 (0.00-0.05); IMMATURE GRAN PERCENT AUTO 0.1 % (0.0-0.4); LYMPHOCYTES ABSOLUTE AUTO 1.7 K/mm3 (1.0-4.8); LYMPHOCYTES PERCENT AUTO 24.5 % (24.0-44.0); MEAN CORPUSCULAR HEMOGLOBIN 29.1 pg (28.0-32.0); MEAN CORPUSCULAR HGB CONC 32.5 g/dl (32.0-36.0); MEAN CORPUSCULAR VOLUME 89.5 fl (83.0-99.0); MEAN PLATELET VOLUME 8.8 fl (9.4-12.3); MONOCYTES ABSOLUTE AUTO 0.4 K/mm3 (0.0-0.8); MONOCYTES PERCENT AUTO 4.9 % (0.0-8.0); NEUTROPHILS ABSOLUTE AUTO 4.9 K/mm3 (1.8-7.7); NEUTROPHILS PERCENT AUTO 68.9 % (41.0-71.0); PLATELET COUNT,PLT 249 K/mm3 (150-400); RED BLOOD CELL COUNT 4.75 M/mm3 (4.10-5.30)
[2024-11-04 20:40] LABS: APPEARANCE,URINE CLEAR (Clear); BILIRUBIN,URINE NEGATIVE (Negative); COLOR,URINE YELLOW (Yellow); GLUCOSE,URINE NEGATIVE (Negative); KETONES,URINE NEGATIVE (Negative); LEUKOCYTE ESTERASE,URINE TRACE (Negative); NITRITE,URINE NEGATIVE (Negative); OCCULT BLOOD,URINE NEGATIVE (Negative); PROTEIN,URINE NEGATIVE (Negative); UROBILINOGEN,URINE 0.2 (0.2-1.0)
[2024-11-04 20:41] LABS: A/G RATIO 1.1 (1-2); ALBUMIN 3.8 g/dl (3.4-5.0); ANION GAP 12.2 (5-15); BILIRUBIN TOTAL 0.3 mg/dL (0.2-1.0); BUN/CREATININE RATIO 17.8 (14-18); CALCIUM 9.1 mg/dL (8.5-10.1); CREATININE 0.9 mg/dL (0.55-1.02); EST CRCL DRUG DOSING (CG) 59.15 mL/min; POTASSIUM,K 4.2 mEq/L (3.5-5.1); PROTEIN TOTAL,TP 7.3 g/dl (6.4-8.2)
[2024-11-04 20:43] LABS: BACTERIA,URINE FEW /hpf (FEW); MUCUS,URINE FEW /hpf (FEW); RBC,URINE 0-5 /hpf (0-5)
[2024-11-04] MEDS ORDERED: Naloxone 0.4 MG/ML SDV IVPUSH PRN ×2 (21:00→22:58)
[2024-11-04] MEDS: Ondansetron 4 MG/2 ML SDV IVPUSH ONE ×2 (21:15→23:11)
[2024-11-04] MEDS: Morphine 4 MG/ML Syringe IVPUSH ONE (21:16)
[2024-11-04] MEDS ORDERED: Iopamidol 612 MG/ML 100 ML Bottle IVPUSH ONE (21:55)
[2024-11-04] MEDS: Ketorolac 30 MG/ML SDV IVPUSH ONE (23:11)
[2024-11-04] MEDS: HYDROmorphone 0.5 MG/0.5 ML Syringe IVPUSH ONE (23:17)
[2024-11-05 00:08] VITALS: BP 110/73; PULSE 62
== END 2024-11-04 23:50 | disposition home or self-care (01) ==
LOC: JD.ED 14:34
DX: N39.0 Urinary tract infection, site not specified (principal); Z91.048 Other nonmedicinal substance allergy status; Z88.8 Allergy status to other drugs, medicaments and biological substances; Z79.899 Other long term (current) drug therapy
CPT/HCPCS: 36415; 74177; 80053; 81001; 83605; 83690; 84484; 85025; 86140; 87086; 93005; 96374; 96375; 96376; 99284; J1885; J2270; J2405

== ENCOUNTER 2024-12-09 08:39 | Day surgery (SDC) | payer OTHER ==
[~2024-12-09 08:39] MED LIST changes: +Dexamethasone 4 MG/ML 5 ML MDV ONE; +HYDROmorphone 0.5 MG/0.5 ML Syringe ONE; +Lidocaine 1% 5 ML VIAL ONE; +Midazolam 1 MG/ML 2 ML SDV ONE; +Ondansetron 4 MG/2 ML SDV ONE; +Propofol 200 MG/20 ML SDV ONE; +Rocuronium 50 MG/5 ML Vial ONE; +ceFAZolin 2 GM Vial ONE; +fentaNYL 250 MCG/5 ML SDV ONE
[2024-12-09] MEDS ORDERED: Propofol 200 MG/20 ML SDV ONE ×3 (08:41→08:50)
[2024-12-09] MEDS ORDERED: Lactated Ringers 1,000 ML ONE (08:58)
[2024-12-09] MEDS: Lactated Ringers 1,000 ML IV SCH (09:00)
[2024-12-09] MEDS ORDERED: Sugammadex Sodium 200 MG/2 ML VIAL IV ONE (09:01)
[2024-12-09] MEDS ORDERED: Ketorolac 30 MG/ML SDV ONE (09:01)
[2024-12-09] MEDS: Bupivacaine 0.5% 30 ML SDV ONE (09:48)
[2024-12-09] MEDS: EPINEPHrine 1 MG/ML SDV ONE (09:48)
[2024-12-09] MEDS ORDERED: HYDROmorphone 0.5 MG/0.5 ML Syringe IVPUSH PRN (10:05)
[2024-12-09] MEDS: fentaNYL 100 MCG/2 ML SDV IVPUSH PRN (11:45)
[2024-12-09] MEDS: oxyCODONE 5 MG Tab PO PRN (13:53)
[2024-12-09] MEDS: Acetaminophen Soln 650 MG/20.3 ML UD Cup PO ONE (13:53)
[2024-12-09] MEDS: Ondansetron 4 MG/2 ML SDV IVPUSH PRN (14:00)
[2024-12-09 16:22] VITALS: BP 101/60; PULSE 77
== END 2024-12-09 16:30 | disposition home or self-care (01) ==
LOC: JD.SDS 08:39
PROVIDERS: ATTEND Surgery
DX: K41.90 Unilateral femoral hernia, without obstruction or gangrene, not specified as recurrent (principal); K21.9 Gastro-esophageal reflux disease without esophagitis; F41.9 Anxiety disorder, unspecified
CPT/HCPCS: 49659; A9270; C1781; J0171; J0665; J0690; J1100; J1885; J2003; J2250; J2405; J2704; J3010; J7120; 00830; J3490